=== PATIENT | female | born 1950 | race African-American/Black ===

== ENCOUNTER 2017-04-29 13:22 | Inpatient (IN) ==
[2017-04-29] MEDS ORDERED: ONDANSETRON 4 MG/2 ML VIAL IV STA (14:20)
[2017-04-29] MEDS ORDERED: DEXTROSE 50% 25 GM/50 ML VIAL IV STA ×2 (14:20→15:16)
[2017-04-29] MEDS ORDERED: DEXTROSE 50% 25 GM/50 ML VIAL IV ONE (14:22)
[2017-04-29] MEDS ORDERED: LEVOFLOXACIN INJ 750 MG in PREMIX 1 EACH IV STA (14:36)
[2017-04-29] MEDS ORDERED: LEVOFLOXACIN INJ 150 ML IV ONE (14:47)
[2017-04-29] MEDS ORDERED: ONDANSETRON 4 MG/2 ML VIAL ONE (14:50)
[2017-04-29 14:59] LABS: Basophils % 0.2 % (0.0-0.8); Eosinophils % 0.3 % (0.00-10.9); Hematocrit 36.7 VOL% (35.7-47.0); Immature Granulocytes % 0.9 %; Immature Granulocytes Absolute 0.11 #; Lymphocytes # 2.4 10*3/uL (1.4-4.0); Lymphocytes % 20.5 % (21.3-54.2); Mean Corpuscular Hemoglobin 31 PG (27-34); Mean Corpuscular Volume 102.2 FL (87-102); Mean Platelet Volume 10.8 FL (9.6-12.0); Monocytes # 0.2 10*3/uL (0.11-0.8); Monocytes % 1.4 % (1.7-12.7); Neutrophils # 9.1 10*3/uL (1.4-7.4); Neutrophils % 76.7 % (38.7-73.9); Platelet Count 86 T/CUMM (130-400); Red Blood Count 3.59 MC/CUMM (3.8-5.5); Red Cell Distribution Width 15.2 % (9.3-17.3); White Blood Count 11.8 T/CUMM (4-12)
[2017-04-29] MEDS ORDERED: SODIUM CHLORIDE 0.9% 1,000 ML IV STA ×3 (15:16→17:36)
[2017-04-29 15:27] LABS: Alanine Aminotransferase 26 U/L (13-56); Albumin 2.1 G/DL (3.4-5.0); Alkaline Phosphatase 39 U/L (45-117); Amylase 68 U/L (25-115); Aspartate Amino Transferase 27 U/L (0-37); Blood Urea Nitrogen 58 MG/DL (7-18); Osmolality,Calculated 309.2 MOS/KG (273-304); Potassium 5.1 MMOL/L (3.5-5.1); Sodium 134 MMOL/L (136-145); Total Protein 6.5 G/DL (6.4-8.3)
[2017-04-29] MEDS ORDERED: DEXTROSE 5% IV SCH ×2 (15:30)
[2017-04-29] MEDS ORDERED: NACL 0.9% IV SCH ×2 (15:30)
[2017-04-29 15:36] LABS: Glucose 574 MG/DL (74-106); Lactic Acid 10.9 MMOL/L (0.4-2.0); Troponin I Only 0.142 NG/ML (0.00-0.045)
[2017-04-29 16:44] LABS: Apearance,Urine Slightly Hazy (Clear); Bacteria,Urine Occasional /HPF (Few); Bilirubin,Urine Negative (Negative); Blood, Urine Negative (Negative); Glucose,Urine (UA) >=500 mg/dL (Negative); Ketones,Urine 20 mg/dL (Negative); Mucus,Urine Occasional /LPF (Occasional); Nitrite,Urine Negative (Negative); Protein,Urine 100 MG/DL; RBC,Urine 2 /HPF (0-4); Squamous Epithelial Cell,Urine Occasional /HPF (0-10); Urine Color Straw (Yellow); Urine Specific Gravity 1.007 (1.001-1.035); Urine Urobilinogen < 2.0 EU/DL (0.2-1.0); WBC,Urine 4 /HPF (0-6)
[2017-04-29 16:49] LABS: ABG Base Excess -22.8 MMOL/L (-2.5-2.5); ABG HCO3 8.3 MMOL/L (20-26); ABG Oxygen Saturation 94.5 % (95-100); ABG TCO2 5.8 MMOL/L (23-27)
[2017-04-29 16:51] LABS: ABG PCO2 20.3 MM HG (35-48)
[2017-04-29] MEDS ORDERED: SODIUM PHOSPHATE INJ 18.7 MMOL in SODIUM CHLORIDE 0.9% 250 ML IV PRN (17:09)
[2017-04-29] MEDS ORDERED: SODIUM CHLORIDE 0.9% 1,000 ML IV ONE (17:09)
[2017-04-29] MEDS ORDERED: MAGNESIUM SULF RIDER 2 GM in PREMIX 1 EACH IV PRN (17:09)
[2017-04-29] MEDS ORDERED: MAGNESIUM SULF RIDER 4 GM in PREMIX 1 EACH IV PRN (17:09)
[2017-04-29] MEDS ORDERED: SODIUM BICARB INJ 100 MEQ in STERILE WATER INJ 400 ML IV PRN (17:09)
[2017-04-29] MEDS ORDERED: POTASSIUM CHLORIDE RIDER 10 MEQ in PREMIX 1 EACH IV PRN (17:09)
[2017-04-29] MEDS ORDERED: DEXTROSE 50% 25 GM/50 ML VIAL IV PRN ×2 (17:09)
[2017-04-29] MEDS ORDERED: INSULIN REGULAR 100 UNIT/ML IV ONE (17:09)
[2017-04-29 17:23] LABS: Barbiturates Screen,Urine Negative (Negative); Benzodiazepines Screen,Urine Negative (Negative); Cannabinoid Screen,Urine Negative (Negative); Opiate Screen,Urine Positive (Negative); Phencyclidine Screen,Urine Negative (Negative)
[2017-04-29 17:30] LABS: Magnesium 2.2 MG/DL (1.8-2.4)
[2017-04-29] MEDS ORDERED: INSULIN REGULAR DRIP 100 ML IV SCH (17:30)
[2017-04-29] MEDS ORDERED: HYDROCORTISONE 100 MG VIAL IV STA (17:41)
[2017-04-29] MEDS: SODIUM CHLORIDE 0.9% 1,000 ML IV SCH ×2 (17:50→20:17)
[2017-04-29 18:37] LABS: ABG Base Excess -22.9 MMOL/L (-2.5-2.5); ABG HCO3 5.2 MMOL/L (20-26); ABG Oxygen Saturation 95.3 % (95-100); ABG PO2 99.9 MM HG (80-95); ABG TCO2 5.7 MMOL/L (23-27)
[2017-04-29 18:39] LABS: ABG PH 7.085 (7.35-7.45)
[2017-04-29 18:40] LABS: ABG PCO2 17.6 MM HG (35-48)
[2017-04-29 20:07] LABS: Basophils % 0.2 % (0.0-0.8); Eosinophils % 0.2 % (0.00-10.9); Hemoglobin 12.3 GM/DL (12.0-16.0); Immature Granulocytes % 1.3 %; Immature Granulocytes Absolute 0.16 #; Lymphocytes # 2.2 10*3/uL (1.4-4.0); Lymphocytes % 17.4 % (21.3-54.2); Mean Corpuscular HGB Conc 29.9 GM/DL (32-36); Mean Corpuscular Hemoglobin 31 PG (27-34); Mean Corpuscular Volume 102.2 FL (87-102); Mean Platelet Volume 11.6 FL (9.6-12.0); Monocytes # 0.2 10*3/uL (0.11-0.8); Monocytes % 1.4 % (1.7-12.7); Neutrophils # 10.1 10*3/uL (1.4-7.4); Neutrophils % 79.5 % (38.7-73.9); Platelet Count 101 T/CUMM (130-400); Red Blood Count 4.02 MC/CUMM (3.8-5.5); White Blood Count 12.7 T/CUMM (4-12)
[2017-04-29 20:11] LABS: Hematocrit 41.1 VOL% (35.7-47.0)
[2017-04-29] MEDS: DEXTROSE 5% LACTATED RINGERS 1,000 ML IV SCH (20:18)
[2017-04-29] MEDS ORDERED: SODIUM CHLORIDE 0.9% 1,000 ML IV SCH (20:30)
[2017-04-29 20:36] LABS: Eosinophils 1 % (0-10); Lymphocytes 10 % (20-55); Platelet Estimate Decreased; Segmented Neutrophils 89 % (50-85); Total Cells Counted 100
[2017-04-29 20:42] LABS: Lactic Acid 12.3 MMOL/L (0.4-2.0)
[2017-04-29 20:44] LABS: Calcium 8.1 MG/DL (8.5-10.1); Osmolality,Calculated 303.1 MOS/KG (273-304); Potassium 5.2 MMOL/L (3.5-5.1)
[2017-04-29] MEDS: ENOXAPARIN 30 MG/0.3 ML SYRINGE SUBCUT SCH (21:16)
[2017-04-30 00:39] LABS: Calcium 8.2 MG/DL (8.5-10.1); Osmolality,Calculated 304.8 MOS/KG (273-304); Potassium 4.8 MMOL/L (3.5-5.1)
[2017-04-30] MEDS: DEXT 5% LACT RING KCL 20 MEQ 20 MEQ/1,000 ML BAG IV SCH ×2 (01:50→09:18)
[2017-04-30 04:19] LABS: Allen Test Positive; Pt O2 Delivery Device Room Air
[2017-04-30 04:26] LABS: ABG Base Excess -13.7 MMOL/L (-2.5-2.5); ABG HCO3 13.9 MMOL/L (20-26); ABG Oxygen Saturation 96.4 % (95-100); ABG PCO2 26.4 MM HG (35-48); ABG PH 7.268 (7.35-7.45); ABG PO2 86.3 MM HG (80-95)
[2017-04-30 05:18] LABS: Basophils % 0.1 % (0.0-0.8); Eosinophils % 0.1 % (0.00-10.9); Hematocrit 36.1 VOL% (35.7-47.0); Hemoglobin 11.2 GM/DL (12.0-16.0); Immature Granulocytes % 1.6 %; Immature Granulocytes Absolute 0.22 #; Lymphocytes # 2.6 10*3/uL (1.4-4.0); Lymphocytes % 18.7 % (21.3-54.2); Mean Corpuscular Hemoglobin 30 PG (27-34); Mean Corpuscular Volume 97.8 FL (87-102); Monocytes # 0.6 10*3/uL (0.11-0.8); Monocytes % 3.9 % (1.7-12.7); Neutrophils # 10.7 10*3/uL (1.4-7.4); Neutrophils % 75.6 % (38.7-73.9); Platelet Count 102 T/CUMM (130-400); Red Blood Count 3.69 MC/CUMM (3.8-5.5); Red Cell Distribution Width 14.9 % (9.3-17.3); White Blood Count 14.1 T/CUMM (4-12)
[2017-04-30] MEDS: HYDROCORTISONE 100 MG VIAL IV SCH ×3 (05:28→20:37)
[2017-04-30 05:43] LABS: Calcium 7.8 MG/DL (8.5-10.1); Osmolality,Calculated 305.6 MOS/KG (273-304); Potassium 4.4 MMOL/L (3.5-5.1)
[2017-04-30 06:18] LABS: Magnesium 2.1 MG/DL (1.8-2.4)
[2017-04-30] MEDS: DEXTROSE 5% LACTATED RINGERS 1,000 ML IV SCH (07:17)
[2017-04-30] MEDS ORDERED: SODIUM CHLORIDE 0.45% 1,000 ML IV SCH (10:09)
[2017-04-30] MEDS: SODIUM BICARB INJ 100 MEQ in DEXTROSE 5% 1,000 ML IV SCH ×2 (10:32→16:40)
[2017-04-30] MEDS ORDERED: GLUCAGON 1 MG VIAL IM PRN (11:54)
[2017-04-30 12:12] LABS: Immunoglobulin A 49 MG/DL (70-400); Immunoglobulin G 2060 MG/DL (700-1600); Immunoglobulin M < 21 MG/DL (40-230); Total Protein 6.8 G/DL (6.4-8.3)
[2017-04-30] MEDS: NIFEdipine 10 MG CAPSULE PO PRN (13:28)
[2017-04-30] MEDS ORDERED: INSULIN REGULAR 100 UNIT/ML SUBCUT SCH (14:00)
[2017-04-30] MEDS: INSULIN REGULAR 100 UNIT/ML SUBCUT SCH ×2 (15:37→20:36)
[2017-04-30] MEDS: ENOXAPARIN 30 MG/0.3 ML SYRINGE SUBCUT SCH (20:36)
[2017-05-01] MEDS: INSULIN REGULAR 100 UNIT/ML SUBCUT SCH ×6 (00:28→20:43)
[2017-05-01 01:21] LABS: Hematocrit 33.3 VOL% (35.7-47.0); Hemoglobin 11.3 GM/DL (12.0-16.0); Immature Granulocytes % 0.9 %; Immature Granulocytes Absolute 0.08 #; Lymphocytes # 0.8 10*3/uL (1.4-4.0); Mean Corpuscular HGB Conc 33.9 GM/DL (32-36); Mean Corpuscular Hemoglobin 31 PG (27-34); Mean Platelet Volume 11.1 FL (9.6-12.0); Monocytes # 0.5 10*3/uL (0.11-0.8); Monocytes % 6.2 % (1.7-12.7); NRBC # 0.02 10*3/uL; Neutrophils # 7.3 10*3/uL (1.4-7.4); Neutrophils % 83.9 % (38.7-73.9); Red Blood Count 3.66 MC/CUMM (3.8-5.5); Red Cell Distribution Width 14.9 % (9.3-17.3); White Blood Count 8.8 T/CUMM (4-12)
[2017-05-01 01:27] LABS: Platelet Count 73 T/CUMM (130-400)
[2017-05-01] MEDS: SODIUM BICARB INJ 100 MEQ in DEXTROSE 5% 1,000 ML IV SCH ×5 (01:37→19:07)
[2017-05-01 01:50] LABS: Lactic Acid 4.1 MMOL/L (0.4-2.0)
[2017-05-01 01:53] LABS: Alanine Aminotransferase 30 U/L (13-56); Albumin 2.5 G/DL (3.4-5.0); Alkaline Phosphatase 39 U/L (45-117); Aspartate Amino Transferase 31 U/L (0-37); Bilirubin,Total < 0.39 MG/DL (0.2-1.0); Blood Urea Nitrogen 52 MG/DL (7-18); Glucose 149 MG/DL (74-106); Magnesium 1.9 MG/DL (1.8-2.4); Osmolality,Calculated 295.4 MOS/KG (273-304); Potassium 3.5 MMOL/L (3.5-5.1); Sodium 140 MMOL/L (136-145); Total Protein 6.8 G/DL (6.4-8.3)
[2017-05-01] MEDS ORDERED: CALCIUM GLUCONATE 2,000 MG in SODIUM CHLORIDE 0.9% 100 ML IV ONE (02:36)
[2017-05-01 03:47] LABS: Ovalocytes 1+
[2017-05-01 03:48] LABS: Platelet Estimate Decreased; Tear Drop Cells Few
[2017-05-01] MEDS ORDERED: POTASSIUM CHLORIDE INJ 20 MEQ in SODIUM CHLORIDE 0.9% 250 ML IV ONE (04:00)
[2017-05-01] MEDS: HYDROCORTISONE 100 MG VIAL IV SCH ×2 (04:12→12:03)
[2017-05-01] MEDS: NIFEdipine 10 MG CAPSULE PO PRN (05:42)
[2017-05-01 05:47] LABS: Lactic Acid 4.4 MMOL/L (0.4-2.0)
[2017-05-01 06:05] LABS: VBG Base Excess -4.5 MEQ/L (0-4); VBG Oxygen Saturation 98.7 %; VBG PCO2 26.2 MMHG (41-51); VBG PH 7.455; VBG PO2 223.3 MMHG (17-40)
[2017-05-01] MEDS ORDERED: ROSUVASTATIN 20 MG TABLET PO SCH (12:00)
[2017-05-01] MEDS: DILTIAZEM CD 120 MG CAPSULE PO SCH (12:04)
[2017-05-01] MEDS: LEVOFLOXACIN INJ 250 MG in PREMIX 1 EACH IV SCH (15:53)
[2017-05-01] MEDS: CARVEDILOL 25 MG TABLET PO SCH (16:39)
[2017-05-01] MEDS: ENOXAPARIN 30 MG/0.3 ML SYRINGE SUBCUT SCH (20:44)
[2017-05-02] MEDS: SODIUM BICARB INJ 100 MEQ in DEXTROSE 5% 1,000 ML IV SCH ×2 (03:00→09:24)
[2017-05-02] MEDS: INSULIN REGULAR 100 UNIT/ML SUBCUT SCH ×6 (03:02→21:41)
[2017-05-02 03:17] LABS: Basophils % 0.2 % (0.0-0.8); Hematocrit 33.9 VOL% (35.7-47.0); Hemoglobin 11.6 GM/DL (12.0-16.0); Immature Granulocytes % 1.2 %; Immature Granulocytes Absolute 0.08 #; Lymphocytes # 1.3 10*3/uL (1.4-4.0); Lymphocytes % 19.5 % (21.3-54.2); Mean Corpuscular HGB Conc 34.2 GM/DL (32-36); Mean Corpuscular Hemoglobin 31 PG (27-34); Mean Corpuscular Volume 89.4 FL (87-102); Mean Platelet Volume 12.4 FL (9.6-12.0); Monocytes % 14.7 % (1.7-12.7); Neutrophils # 4.3 10*3/uL (1.4-7.4); Neutrophils % 64.4 % (38.7-73.9); Platelet Count 71 T/CUMM (130-400); Red Blood Count 3.79 MC/CUMM (3.8-5.5); Red Cell Distribution Width 14.7 % (9.3-17.3); White Blood Count 6.7 T/CUMM (4-12)
[2017-05-02 03:30] LABS: Lactic Acid 3.2 MMOL/L (0.4-2.0)
[2017-05-02 04:24] LABS: Anisocytosis 1+; Poikilocytosis 1+
[2017-05-02 04:43] LABS: Blood Urea Nitrogen 43 MG/DL (7-18); Calcium 6.8 MG/DL (8.5-10.1); Glucose 113 MG/DL (74-106); Magnesium 1.8 MG/DL (1.8-2.4); Osmolality,Calculated 290.4 MOS/KG (273-304); Potassium 2.8 MMOL/L (3.5-5.1); Sodium 140 MMOL/L (136-145)
[2017-05-02 04:47] LABS: Troponin I Only 0.705 NG/ML (0.00-0.045)
[2017-05-02] MEDS ORDERED: POTASSIUM CHLORIDE INJ 50 MEQ in SODIUM CHLORIDE 0.9% 500 ML IV ONE (06:00)
[2017-05-02 07:53] LABS: Lactic Acid 3.3 MMOL/L (0.4-2.0)
[2017-05-02] MEDS: DILTIAZEM CD 120 MG CAPSULE PO SCH (09:18)
[2017-05-02] MEDS: CARVEDILOL 25 MG TABLET PO SCH ×2 (09:19→16:50)
[2017-05-02] MEDS: POTASSIUM CHLORIDE 20 MEQ TABLET PO SCH ×4 (09:19→21:19)
[2017-05-02] MEDS: ASPIRIN EC 81 MG TABLET PO SCH (09:19)
[2017-05-02] MEDS: DOCUSATE SODIUM 100 MG CAPSULE PO SCH ×2 (09:40→21:19)
[2017-05-02] MEDS: SODIUM BICARB INJ 50 MEQ in DEXTROSE 5% 1,000 ML IV SCH (16:23)
[2017-05-02] MEDS: ENOXAPARIN 30 MG/0.3 ML SYRINGE SUBCUT SCH (21:19)
[2017-05-03] MEDS: INSULIN REGULAR 100 UNIT/ML SUBCUT SCH ×6 (01:26→20:58)
[2017-05-03] MEDS: SODIUM BICARB INJ 50 MEQ in DEXTROSE 5% 1,000 ML IV SCH ×2 (01:26→13:04)
[2017-05-03 05:37] LABS: Magnesium 1.5 MG/DL (1.8-2.4); Osmolality,Calculated 288.4 MOS/KG (273-304); Potassium 3.8 MMOL/L (3.5-5.1)
[2017-05-03 05:49] LABS: Calcium 5.6 MG/DL (8.5-10.1)
[2017-05-03 08:15] LABS: Immunoglobulin A (Chem) 49 MG/DL (70-400); Immunoglobulin G (Chem) 2060 MG/DL (700-1600); Total Protein (Chem) 6.8 G/DL (6.4-8.3)
[2017-05-03 08:16] LABS: Immunoglobulin M (Chem) < 21 MG/DL (40-230)
[2017-05-03] MEDS: CALCIUM (CARBONATE)/VITAMIN D 600 MG-400 UNIT TABLET PO SCH ×2 (09:17→20:57)
[2017-05-03] MEDS: CARVEDILOL 25 MG TABLET PO SCH ×2 (09:17→16:54)
[2017-05-03] MEDS: DOCUSATE SODIUM 100 MG CAPSULE PO SCH ×2 (09:17→20:57)
[2017-05-03] MEDS: DILTIAZEM CD 120 MG CAPSULE PO SCH (09:17)
[2017-05-03] MEDS: ASPIRIN EC 81 MG TABLET PO SCH (09:18)
[2017-05-03 09:29] LABS: 25 Hydroxy Vitamin D Total 11.2 NG/ML
[2017-05-03 10:12] LABS: Parathyroid Hormone Intact 1726.7 PG/ML (18.4-80.1)
[2017-05-03 13:16] LABS: Albumin (SPE) 3.2 G/DL (3.2-5.3); Albumin (SPE) Rel % 48.1 %; Alpha 1 (SPE) 0.2 G/DL (0.1-0.4); Alpha 1 (SPE) Rel % 3.1 %; Alpha 2 (SPE) 0.7 G/DL (0.4-1.0); Alpha 2 (SPE) Rel % 10.3 %; Beta (SPE) 0.7 G/DL (0.5-1.1); Beta (SPE) Rel % 9.6 %; Gamma (SPE) Rel % 28.9 %
[2017-05-03] MEDS ORDERED: TUBERCULIN SKIN TEST 0.1 ML SYRINGE INTRADERM ONE (13:19)
[2017-05-03] MEDS: LEVOFLOXACIN INJ 250 MG in PREMIX 1 EACH IV SCH (16:37)
[2017-05-03] MEDS: SODIUM BICARBONATE 650 MG TABLET PO SCH (20:58)
[2017-05-04] MEDS: INSULIN REGULAR 100 UNIT/ML SUBCUT SCH ×4 (02:03→11:56)
[2017-05-04 08:19] LABS: Immuno Free Light Chain Kappa 67.54 MG/DL (0.33-1.94); Immuno Free Light Chain Lambda 0.66 MG/DL (0.57-2.63); Immuno Free Light Chain Ratio 102.33 MG/DL (0.26-1.65)
[2017-05-04] MEDS: CALCIUM (CARBONATE)/VITAMIN D 600 MG-400 UNIT TABLET PO SCH (09:24)
[2017-05-04] MEDS: DILTIAZEM CD 120 MG CAPSULE PO SCH (09:24)
[2017-05-04] MEDS: DOCUSATE SODIUM 100 MG CAPSULE PO SCH (09:24)
[2017-05-04] MEDS: ASPIRIN EC 81 MG TABLET PO SCH (09:24)
[2017-05-04] MEDS: SODIUM BICARBONATE 650 MG TABLET PO SCH (09:24)
[2017-05-04] MEDS: CARVEDILOL 25 MG TABLET PO SCH (09:24)
[2017-05-04 09:58] LABS: Calcium 6.5 MG/DL (8.5-10.1); Osmolality,Calculated 291.1 MOS/KG (273-304); Potassium 3.5 MMOL/L (3.5-5.1)
[2017-05-04] MEDS ORDERED: ERGOCALCIFEROL 50,000 UNIT CAPSULE PO SCH (12:00)
[2017-05-04 12:16] VITALS: BP 94/67
== END 2017-05-04 14:07 | disposition home or self-care (01) | DRG 637 ==
LOC: EDUNIT# → EDBD → N.ED 13:22 → SUATTDRO 17:11 → N.EDINP 17:11 → N.ICU 17:46 → N.TELES 05-01 13:39
PROVIDERS: ADMIT Internal Medicine; ATTEND Internal Medicine

== ENCOUNTER 2017-05-11 11:58 | Inpatient (IN) ==
[2017-05-11] MEDS ORDERED: SODIUM CHLORIDE 0.9% 1,000 ML IV STA (12:12)
[2017-05-11] MEDS ORDERED: methylPREDNISolone SOD SUC 125 MG/2 ML VIAL IV STA (12:12)
[2017-05-11] MEDS ORDERED: LEVOFLOXACIN INJ 750 MG in PREMIX 1 EACH IV SCH (12:30)
[2017-05-11] MEDS ORDERED: ALBUTEROL NEB SOLN 5 MG/ML 20 ML/BOTTLE RESP TX SCH (12:30)
[2017-05-11] MEDS ORDERED: methylPREDNISolone SOD SUC 125 MG/2 ML VIAL ONE (13:04)
[2017-05-11] MEDS ORDERED: LEVOFLOXACIN INJ 150 ML IV ONE (13:04)
[2017-05-11 13:20] LABS: Basophils % 0.2 % (0.0-0.8); Eosinophils % 0.5 % (0.00-10.9); Hematocrit 29.2 VOL% (35.7-47.0); Hemoglobin 9.2 GM/DL (12.0-16.0); Immature Granulocytes % 1.4 %; Immature Granulocytes Absolute 0.08 #; Lymphocytes # 1.5 10*3/uL (1.4-4.0); Lymphocytes % 26.2 % (21.3-54.2); Mean Corpuscular HGB Conc 31.5 GM/DL (32-36); Mean Corpuscular Hemoglobin 30 PG (27-34); Mean Corpuscular Volume 93.9 FL (87-102); Mean Platelet Volume 12.6 FL (9.6-12.0); Monocytes # 0.5 10*3/uL (0.11-0.8); Monocytes % 9.1 % (1.7-12.7); Neutrophils # 3.6 10*3/uL (1.4-7.4); Neutrophils % 62.6 % (38.7-73.9); Red Blood Count 3.11 MC/CUMM (3.8-5.5); Red Cell Distribution Width 14.7 % (9.3-17.3); White Blood Count 5.8 T/CUMM (4-12)
[2017-05-11 13:22] LABS: Platelet Count 47 T/CUMM (130-400)
[2017-05-11 13:24] LABS: Apearance,Urine Clear (Clear); Glucose,Urine (UA) 50 mg/dL (Negative); Protein,Urine 100 MG/DL; Urine Color Yellow (Yellow); Urine Specific Gravity 1.005 (1.001-1.035)
[2017-05-11 13:25] LABS: Bilirubin,Urine Negative (Negative); Blood, Urine Trace mg/dL (Negative); Ketones,Urine Negative (Negative); Nitrite,Urine Negative (Negative); Urine Urobilinogen 0.2 EU/DL (0.2-1.0)
[2017-05-11 13:28] LABS: RBC,Urine 0-5 /HPF (0-4); Squamous Epithelial Cell,Urine Few /HPF (0-10)
[2017-05-11 13:29] LABS: Mucus,Urine Few /LPF (Occasional)
[2017-05-11 13:31] LABS: INR 0.9; PT Patient Result 9.9 SECS; Partial Thromboplastin Time 30.9 SECS (0-40)
[2017-05-11 13:39] LABS: Barbiturates Screen,Urine Negative (Negative); Benzodiazepines Screen,Urine Negative (Negative); Cannabinoid Screen,Urine Negative (Negative); Opiate Screen,Urine Positive (Negative); Phencyclidine Screen,Urine Negative (Negative)
[2017-05-11 13:39] LABS: Albumin 2.2 G/DL (3.4-5.0); Bilirubin,Total 0.9 MG/DL (0.2-1.0); Calcium 6.4 MG/DL (8.5-10.1); Osmolality,Calculated 291.7 MOS/KG (273-304); Potassium 5.1 MMOL/L (3.5-5.1); Total Protein 6.7 G/DL (6.4-8.3)
[2017-05-11 13:40] LABS: Troponin I Only 0.373 NG/ML (0.00-0.045)
[2017-05-11 13:53] LABS: ABG Base Excess -8.8 MMOL/L (-2.5-2.5); ABG HCO3 17.3 MMOL/L (20-26); ABG Oxygen Saturation 93.8 % (95-100); ABG PCO2 37.6 MM HG (35-48); ABG PH 7.274 (7.35-7.45); ABG PO2 80.5 MM HG (80-95); ABG TCO2 16.4 MMOL/L (23-27); Allen Test Positive
[2017-05-11] MEDS ORDERED: ALBUTEROL 2.5 MG/3 ML NEB RESP TX PRN (14:43)
[2017-05-11] MEDS ORDERED: ONDANSETRON 4 MG/2 ML VIAL IV PRN (14:43)
[2017-05-11] MEDS ORDERED: PIPERACILLIN/TAZOBACTAM 3,375 MG in SODIUM CHLORIDE 0.9% 100 ML IV SCH (15:00)
[2017-05-11] MEDS ORDERED: methylPREDNISolone SOD SUC 40 MG/1 ML VIAL IV SCH (15:00)
[2017-05-11] MEDS ORDERED: DEXTROSE 50% 25 GM/50 ML VIAL IV PRN (15:28)
[2017-05-11] MEDS ORDERED: GLUCAGON 1 MG VIAL IM PRN (15:28)
[2017-05-11] MEDS ORDERED: FUROSEMIDE 40 MG/4 ML VIAL IV SCH (16:00)
[2017-05-11] MEDS ORDERED: cefTRIAXone 1,000 MG VIAL ONE (16:06)
[2017-05-11] MEDS: cefTRIAXone 1,000 MG in SYRINGE 1 EACH IV SCH (16:15)
[2017-05-11] MEDS: INSULIN REGULAR 100 UNIT/ML SUBCUT SCH (18:39)
[2017-05-11] MEDS ORDERED: FUROSEMIDE 40 MG/4 ML VIAL ONE (18:40)
[2017-05-11] MEDS: ALBUTEROL/IPRATROPIUM 3 ML NEB RESP TX SCH (19:52)
[2017-05-11] MEDS: CALCIUM (CARBONATE)/VITAMIN D 600 MG-400 UNIT TABLET PO SCH (22:49)
[2017-05-11] MEDS: PREGABALIN 50 MG CAPSULE PO SCH (22:50)
[2017-05-11] MEDS: SODIUM BICARBONATE 650 MG TABLET PO SCH (22:50)
[2017-05-11] MEDS: methylPREDNISolone SOD SUC 40 MG/1 ML VIAL IV SCH (23:00)
[2017-05-11] MEDS: PANTOPRAZOLE 40 MG VIAL IV SCH (23:00)
[2017-05-12] MEDS ORDERED: methylPREDNISolone SOD SUC 40 MG/1 ML VIAL IV SCH (00:01)
[2017-05-12] MEDS: ALBUTEROL/IPRATROPIUM 3 ML NEB RESP TX SCH ×4 (00:48→19:47)
[2017-05-12] MEDS: INSULIN REGULAR 100 UNIT/ML SUBCUT SCH ×5 (01:10→21:12)
[2017-05-12] MEDS: cefTRIAXone 1,000 MG in SYRINGE 1 EACH IV SCH ×2 (03:39→15:00)
[2017-05-12] MEDS: methylPREDNISolone SOD SUC 40 MG/1 ML VIAL IV SCH ×3 (05:57→20:56)
[2017-05-12 06:24] LABS: Basophils % 0.1 % (0.0-0.8); Hematocrit 33.8 VOL% (35.7-47.0); Hemoglobin 10.8 GM/DL (12.0-16.0); Immature Granulocytes % 2.4 %; Immature Granulocytes Absolute 0.18 #; Lymphocytes # 1.6 10*3/uL (1.4-4.0); Mean Corpuscular Hemoglobin 30 PG (27-34); Mean Corpuscular Volume 93.9 FL (87-102); Mean Platelet Volume 13.2 FL (9.6-12.0); Monocytes # 0.2 10*3/uL (0.11-0.8); Neutrophils # 5.7 10*3/uL (1.4-7.4); Neutrophils % 74.5 % (38.7-73.9); Platelet Count 50 T/CUMM (130-400); Red Cell Distribution Width 14.7 % (9.3-17.3); White Blood Count 7.6 T/CUMM (4-12)
[2017-05-12 06:45] LABS: Calcium 6.2 MG/DL (8.5-10.1); Osmolality,Calculated 290.7 MOS/KG (273-304)
[2017-05-12 06:47] LABS: Potassium 6.2 MMOL/L (3.5-5.1)
[2017-05-12 06:52] LABS: Band Neutrophils 7 % (0-10); Lymphocytes 24 % (20-55); Macrocytosis 1+; Platelet Estimate Decreased; Segmented Neutrophils 67 % (50-85); Total Cells Counted 100
[2017-05-12] MEDS ORDERED: SODIUM BICARBONATE 50 MEQ/50 ML SYRINGE IV ONE (06:52)
[2017-05-12] MEDS ORDERED: CALCIUM CHLORIDE 1,000 MG/10 ML SYRINGE IV ONE (06:52)
[2017-05-12] MEDS ORDERED: INSULIN REGULAR 100 UNIT/ML IV ONE (06:52)
[2017-05-12] MEDS ORDERED: SODIUM POLYSTYRENE SULFATE 15 GM/60 ML BOTTLE PO STA (06:52)
[2017-05-12] MEDS ORDERED: DEXTROSE 50% 25 GM/50 ML VIAL IV ONE (06:52)
[2017-05-12] MEDS ORDERED: SODIUM BICARB INJ 100 MEQ in DEXTROSE 5% 1,000 ML IV SCH (08:00)
[2017-05-12] MEDS ORDERED: GLUCAGON 1 MG VIAL IM PRN (09:30)
[2017-05-12] MEDS ORDERED: DEXTROSE 50% 25 GM/50 ML VIAL IV PRN (09:30)
[2017-05-12] MEDS: CALCIUM (CARBONATE)/VITAMIN D 600 MG-400 UNIT TABLET PO SCH ×2 (09:53→20:56)
[2017-05-12] MEDS: ASPIRIN EC 81 MG TABLET PO SCH (09:54)
[2017-05-12] MEDS: ROSUVASTATIN 20 MG TABLET PO SCH (09:54)
[2017-05-12] MEDS: INSULIN GLARGINE 100 UNIT/ML SUBCUT SCH (09:54)
[2017-05-12 10:15] LABS: PT Patient Result 10.4 SECS; Partial Thromboplastin Time 29.8 SECS (0-40)
[2017-05-12] MEDS: SODIUM BICARB INJ 150 MEQ in DEXTROSE 5% 1,000 ML IV SCH ×2 (10:49→20:01)
[2017-05-12] MEDS ORDERED: hydrALAZINE 20 MG/1 ML VIAL IV PRN (10:54)
[2017-05-12 11:51] LABS: Hepatitis A Ab IgM Quant 0.12 Index; Hepatitis A Ab IgM Result Negative (Negative); Hepatitis B Core IgM Quant 0.17 Index; Hepatitis B Core IgM Result Negative (Negative); Hepatitis B Surface Ag Quant < 0.10 Index; Hepatitis B Surface Ag Result Negative (Negative); Hepatitis C Virus Ab Quant 0.05 Index; Hepatitis C Virus Ab Result Negative (Negative)
[2017-05-12] MEDS ORDERED: LEVOFLOXACIN INJ 500 MG in PREMIX 1 EACH IV ONE (12:00)
[2017-05-12] MEDS: hydrALAZINE 25 MG TABLET PO SCH ×2 (15:00→20:56)
[2017-05-12] MEDS: CARVEDILOL 25 MG TABLET PO SCH (17:34)
[2017-05-12 18:30] LABS: Calcium 6.7 MG/DL (8.5-10.1); Osmolality,Calculated 297.5 MOS/KG (273-304); Potassium 4.7 MMOL/L (3.5-5.1)
[2017-05-12] MEDS: DILTIAZEM 60 MG TABLET PO SCH (20:56)
[2017-05-12] MEDS: PANTOPRAZOLE 40 MG VIAL IV SCH (20:58)
[2017-05-13] MEDS: ALBUTEROL/IPRATROPIUM 3 ML NEB RESP TX SCH ×4 (00:55→21:44)
[2017-05-13] MEDS: methylPREDNISolone SOD SUC 40 MG/1 ML VIAL IV SCH ×3 (04:51→21:35)
[2017-05-13] MEDS: SODIUM BICARB INJ 150 MEQ in DEXTROSE 5% 1,000 ML IV SCH ×2 (04:51→15:14)
[2017-05-13] MEDS: cefTRIAXone 1,000 MG in SYRINGE 1 EACH IV SCH ×2 (04:55→14:21)
[2017-05-13 05:21] LABS: Hematocrit 27.8 VOL% (35.7-47.0); Hemoglobin 9.6 GM/DL (12.0-16.0); Immature Granulocytes Absolute 0.12 #; Lymphocytes # 1.2 10*3/uL (1.4-4.0); Lymphocytes % 20.1 % (21.3-54.2); Mean Corpuscular HGB Conc 34.5 GM/DL (32-36); Mean Corpuscular Hemoglobin 30 PG (27-34); Mean Platelet Volume 13.4 FL (9.6-12.0); Monocytes # 0.3 10*3/uL (0.11-0.8); Monocytes % 5.5 % (1.7-12.7); Neutrophils # 4.3 10*3/uL (1.4-7.4); Neutrophils % 72.4 % (38.7-73.9); Platelet Count 63 T/CUMM (130-400); Red Blood Count 3.16 MC/CUMM (3.8-5.5); Red Cell Distribution Width 14.5 % (9.3-17.3)
[2017-05-13 05:42] LABS: Band Neutrophils 2 % (0-10); Hypochromasia 1+; Lymphocytes 15 % (20-55); Metamyelocytes 1 %; Myelocytes 1 %; Nucleated Red Blood Cells 0 (0-5); Segmented Neutrophils 76 % (50-85); Total Cells Counted 100
[2017-05-13 05:43] LABS: Microcytosis Slight; Ovalocytes Slight; Platelet Estimate Decreased; Tear Drop Cells Slight
[2017-05-13 05:50] LABS: Calcium 6.5 MG/DL (8.5-10.1); Osmolality,Calculated 298.3 MOS/KG (273-304); Potassium 4.3 MMOL/L (3.5-5.1)
[2017-05-13] MEDS: PREGABALIN 50 MG CAPSULE PO SCH (07:13)
[2017-05-13] MEDS: SODIUM BICARBONATE 650 MG TABLET PO SCH (07:13)
[2017-05-13] MEDS: INSULIN GLARGINE 100 UNIT/ML SUBCUT SCH (07:30)
[2017-05-13] MEDS ORDERED: FAMOTIDINE 20 MG TABLET PO ONE (07:43)
[2017-05-13] MEDS ORDERED: DIAZEPAM 2 MG TABLET PO ONE (07:44)
[2017-05-13] MEDS ORDERED: ceFAZolin 1,000 MG in SYRINGE 1 EACH IV ONE (09:00)
[2017-05-13] MEDS: DILTIAZEM 60 MG TABLET PO SCH ×2 (09:22→21:34)
[2017-05-13] MEDS: hydrALAZINE 25 MG TABLET PO SCH ×3 (09:22→21:34)
[2017-05-13] MEDS: CARVEDILOL 25 MG TABLET PO SCH ×2 (09:22→17:19)
[2017-05-13] MEDS ORDERED: KETAMINE 500 MG/10 ML VIAL ONE (12:13)
[2017-05-13] MEDS ORDERED: fentaNYL 100 MCG/2 ML VIAL ONE (12:13)
[2017-05-13 13:00] LABS: Immuno Free Light Chain Lambda 3.24 MG/DL (0.57-2.63); Immuno Free Light Chain Ratio 563.58 MG/DL (0.26-1.65)
[2017-05-13] MEDS ORDERED: HEPARIN 10,000 UNIT/10 ML VIAL IV SCH (14:00)
[2017-05-13] MEDS ORDERED: EPOETIN ALFA 2,000 UNIT/1 ML VIAL IV SCH (14:00)
[2017-05-13] MEDS: INSULIN REGULAR 100 UNIT/ML SUBCUT SCH ×4 (14:15→21:45)
[2017-05-13] MEDS: CALCIUM (CARBONATE)/VITAMIN D 600 MG-400 UNIT TABLET PO SCH ×2 (14:17→21:35)
[2017-05-13] MEDS: ASPIRIN EC 81 MG TABLET PO SCH (14:17)
[2017-05-13] MEDS: LEVOFLOXACIN 250 MG TABLET PO SCH (14:17)
[2017-05-13] MEDS: ROSUVASTATIN 20 MG TABLET PO SCH (14:17)
[2017-05-13] MEDS: PANTOPRAZOLE 40 MG VIAL IV SCH (21:41)
[2017-05-14] MEDS: ALBUTEROL/IPRATROPIUM 3 ML NEB RESP TX SCH ×4 (02:51→19:58)
[2017-05-14] MEDS: cefTRIAXone 1,000 MG in SYRINGE 1 EACH IV SCH ×2 (04:01→16:15)
[2017-05-14] MEDS: methylPREDNISolone SOD SUC 40 MG/1 ML VIAL IV SCH ×3 (04:06→21:59)
[2017-05-14 04:48] LABS: Hemoglobin 8.3 GM/DL (12.0-16.0); Immature Granulocytes % 2.8 %; Immature Granulocytes Absolute 0.17 #; Lymphocytes # 0.7 10*3/uL (1.4-4.0); Lymphocytes % 12.3 % (21.3-54.2); Mean Corpuscular HGB Conc 33.2 GM/DL (32-36); Mean Corpuscular Hemoglobin 30 PG (27-34); Mean Corpuscular Volume 91.2 FL (87-102); Monocytes # 0.3 10*3/uL (0.11-0.8); NRBC # 0.03 10*3/uL; Neutrophils # 4.8 10*3/uL (1.4-7.4); Neutrophils % 79.9 % (38.7-73.9); Red Blood Count 2.74 MC/CUMM (3.8-5.5); Red Cell Distribution Width 14.6 % (9.3-17.3)
[2017-05-14 04:57] LABS: Mean Platelet Volume 11.7 FL (9.6-12.0)
[2017-05-14 04:59] LABS: Platelet Count 39 T/CUMM (130-400)
[2017-05-14 05:15] LABS: Giant Platelets Few; Hypochromasia 1+; Ovalocytes Slight; Platelet Estimate Decreased
[2017-05-14 05:16] LABS: Microcytosis Slight
[2017-05-14 05:32] LABS: Calcium 6.2 MG/DL (8.5-10.1); Osmolality,Calculated 297.3 MOS/KG (273-304); Potassium 3.8 MMOL/L (3.5-5.1)
[2017-05-14] MEDS: INSULIN REGULAR 100 UNIT/ML SUBCUT SCH ×4 (09:10→22:05)
[2017-05-14] MEDS ORDERED: BORTEZOMIB SUBCUT ONE (13:00)
[2017-05-14] MEDS ORDERED: SODIUM CHLORIDE 0.9% SUBCUT ONE (13:00)
[2017-05-14] MEDS: CARVEDILOL 25 MG TABLET PO SCH ×2 (14:44→17:46)
[2017-05-14] MEDS: hydrALAZINE 25 MG TABLET PO SCH ×3 (14:46→21:58)
[2017-05-14] MEDS: DILTIAZEM 60 MG TABLET PO SCH ×2 (14:47→22:06)
[2017-05-14] MEDS: ASPIRIN EC 81 MG TABLET PO SCH (14:47)
[2017-05-14] MEDS: CALCIUM (CARBONATE)/VITAMIN D 600 MG-400 UNIT TABLET PO SCH ×2 (14:47→21:58)
[2017-05-14] MEDS: INSULIN GLARGINE 100 UNIT/ML SUBCUT SCH (14:49)
[2017-05-14] MEDS: ROSUVASTATIN 20 MG TABLET PO SCH (14:49)
[2017-05-14] MEDS: ACETAMINOPHEN 325 MG TABLET PO PRN (16:15)
[2017-05-14] MEDS: PANTOPRAZOLE 40 MG VIAL IV SCH (22:07)
[2017-05-15] MEDS: ALBUTEROL/IPRATROPIUM 3 ML NEB RESP TX SCH ×4 (00:36→21:09)
[2017-05-15] MEDS: cefTRIAXone 1,000 MG in SYRINGE 1 EACH IV SCH ×2 (03:14→14:56)
[2017-05-15] MEDS: methylPREDNISolone SOD SUC 40 MG/1 ML VIAL IV SCH (05:08)
[2017-05-15] MEDS ORDERED: VANCOMYCIN INJ 500 MG in SODIUM CHLORIDE 0.9% 100 ML IV PRN (07:46)
[2017-05-15] MEDS ORDERED: VANCOMYCIN INJ 1,500 MG in SODIUM CHLORIDE 0.9% 500 ML IV SCH (08:00)
[2017-05-15] MEDS: INSULIN REGULAR 100 UNIT/ML SUBCUT SCH ×4 (08:32→22:53)
[2017-05-15] MEDS: DILTIAZEM 60 MG TABLET PO SCH ×2 (14:19→22:44)
[2017-05-15] MEDS: ROSUVASTATIN 20 MG TABLET PO SCH (14:20)
[2017-05-15] MEDS: hydrALAZINE 25 MG TABLET PO SCH ×2 (14:21)
[2017-05-15] MEDS: CARVEDILOL 25 MG TABLET PO SCH (14:21)
[2017-05-15] MEDS: ASPIRIN EC 81 MG TABLET PO SCH (14:22)
[2017-05-15] MEDS: INSULIN GLARGINE 100 UNIT/ML SUBCUT SCH (14:22)
[2017-05-15] MEDS: LEVOFLOXACIN 250 MG TABLET PO SCH (14:22)
[2017-05-15] MEDS: CALCIUM (CARBONATE)/VITAMIN D 600 MG-400 UNIT TABLET PO SCH ×2 (14:22→22:43)
[2017-05-15] MEDS: VANCOMYCIN INJ 1,000 MG in SODIUM CHLORIDE 0.9% 250 ML IV ONE ×2 (14:23→15:01)
[2017-05-15] MEDS ORDERED: CARVEDILOL 6.25 MG TABLET PO SCH (17:36)
[2017-05-15 18:44] LABS: Albumin 2.8 G/DL (3.4-5.0); Bilirubin,Total 0.4 MG/DL (0.2-1.0); Calcium 7.2 MG/DL (8.5-10.1); Osmolality,Calculated 279.8 MOS/KG (273-304); Potassium 3.2 MMOL/L (3.5-5.1); Total Protein 7.9 G/DL (6.4-8.3)
[2017-05-15 20:00] LABS: Troponin I Only 0.292 NG/ML (0.00-0.045)
[2017-05-15] MEDS ORDERED: MAGNESIUM SULF RIDER 2 GM in PREMIX 1 EACH IV PRN (20:05)
[2017-05-15] MEDS ORDERED: MAGNESIUM SULF RIDER 4 GM in PREMIX 1 EACH IV PRN (20:05)
[2017-05-15] MEDS: POTASSIUM CHLORIDE 20 MEQ TABLET PO PRN (22:42)
[2017-05-15] MEDS: PANTOPRAZOLE 40 MG VIAL IV SCH (22:46)
[2017-05-16] MEDS: ALBUTEROL/IPRATROPIUM 3 ML NEB RESP TX SCH ×4 (04:05→19:32)
[2017-05-16 04:37] LABS: Basophils % 0.2 % (0.0-0.8); Hematocrit 28.1 VOL% (35.7-47.0); Hemoglobin 9.1 GM/DL (12.0-16.0); Immature Granulocytes % 5.1 %; Immature Granulocytes Absolute 0.42 #; Lymphocytes # 0.9 10*3/uL (1.4-4.0); Lymphocytes % 10.8 % (21.3-54.2); Mean Corpuscular HGB Conc 32.4 GM/DL (32-36); Mean Corpuscular Hemoglobin 30 PG (27-34); Mean Corpuscular Volume 92.1 FL (87-102); Monocytes # 0.6 10*3/uL (0.11-0.8); Neutrophils # 6.4 10*3/uL (1.4-7.4); Neutrophils % 76.9 % (38.7-73.9); Red Blood Count 3.05 MC/CUMM (3.8-5.5); Red Cell Distribution Width 14.3 % (9.3-17.3); White Blood Count 8.3 T/CUMM (4-12)
[2017-05-16 04:40] LABS: Platelet Count 31 T/CUMM (130-400)
[2017-05-16] MEDS: methylPREDNISolone SOD SUC 40 MG/1 ML VIAL IV SCH ×3 (04:49→17:24)
[2017-05-16] MEDS: cefTRIAXone 1,000 MG in SYRINGE 1 EACH IV SCH ×2 (05:01→16:46)
[2017-05-16 05:07] LABS: Calcium 7.6 MG/DL (8.5-10.1); Eosinophils 1 % (0-10); Hypochromasia 1+; Lymphocytes 5 % (20-55); Nucleated Red Blood Cells 6 (0-5); Osmolality,Calculated 288.3 MOS/KG (273-304); Potassium 3.6 MMOL/L (3.5-5.1); Segmented Neutrophils 89 % (50-85); Total Cells Counted 100
[2017-05-16 05:08] LABS: Microcytosis Slight; Ovalocytes Slight; Platelet Estimate Decreased; Tear Drop Cells Slight
[2017-05-16 05:23] LABS: Risk Ratio 1.55; VLDL CHOLESTEROL 20.4 MG/DL
[2017-05-16] MEDS ORDERED: AMIODARONE INJ 150 MG in DEXTROSE 5% 100 ML IV ONE (07:52)
[2017-05-16] MEDS ORDERED: AMIODARONE INJ 450 MG in DEXTROSE 5% 241 ML IV SCH (08:00)
[2017-05-16] MEDS: ASPIRIN EC 81 MG TABLET PO SCH (08:55)
[2017-05-16] MEDS: DILTIAZEM 60 MG TABLET PO SCH ×2 (08:55→21:42)
[2017-05-16] MEDS: CALCIUM (CARBONATE)/VITAMIN D 600 MG-400 UNIT TABLET PO SCH ×2 (08:55→21:45)
[2017-05-16] MEDS: CARVEDILOL 25 MG TABLET PO SCH ×2 (08:57→16:31)
[2017-05-16] MEDS: INSULIN REGULAR 100 UNIT/ML SUBCUT SCH ×4 (08:57→21:45)
[2017-05-16] MEDS: INSULIN GLARGINE 100 UNIT/ML SUBCUT SCH (08:58)
[2017-05-16] MEDS ORDERED: CLOPIDOGREL 75 MG TABLET PO SCH (09:00)
[2017-05-16] MEDS: ROSUVASTATIN 20 MG TABLET PO SCH (09:02)
[2017-05-16] MEDS: POTASSIUM CHLORIDE 20 MEQ TABLET PO PRN ×2 (12:54→14:56)
[2017-05-16] MEDS ORDERED: DEXAMETHASONE 10 MG/1 ML VIAL IV ONE (12:57)
[2017-05-16] MEDS ORDERED: DEXAMETHASONE INJ 20 MG in SODIUM CHLORIDE 0.9% 50 ML IV ONE (14:00)
[2017-05-16] MEDS: AMIODARONE INJ 450 MG in DEXTROSE 5% 241 ML IV SCH ×2 (14:59→18:51)
[2017-05-16] MEDS: PANTOPRAZOLE 40 MG VIAL IV SCH (21:45)
[2017-05-17] MEDS: ALBUTEROL/IPRATROPIUM 3 ML NEB RESP TX SCH ×4 (00:52→19:55)
[2017-05-17] MEDS: cefTRIAXone 1,000 MG in SYRINGE 1 EACH IV SCH ×2 (04:21→16:14)
[2017-05-17 05:01] LABS: Basophils % 0.1 % (0.0-0.8); Hematocrit 28.4 VOL% (35.7-47.0); Hemoglobin 9.1 GM/DL (12.0-16.0); Immature Granulocytes % 3.4 %; Immature Granulocytes Absolute 0.33 #; Lymphocytes # 0.7 10*3/uL (1.4-4.0); Lymphocytes % 7.5 % (21.3-54.2); Mean Corpuscular Hemoglobin 30 PG (27-34); Mean Corpuscular Volume 93.7 FL (87-102); Monocytes # 0.3 10*3/uL (0.11-0.8); Monocytes % 3.4 % (1.7-12.7); NRBC # 0.35 10*3/uL; Neutrophils # 8.3 10*3/uL (1.4-7.4); Neutrophils % 85.6 % (38.7-73.9); Red Blood Count 3.03 MC/CUMM (3.8-5.5); Red Cell Distribution Width 14.5 % (9.3-17.3); White Blood Count 9.7 T/CUMM (4-12)
[2017-05-17 05:16] LABS: Platelet Count 27 T/CUMM (130-400)
[2017-05-17 05:33] LABS: Albumin 2.6 G/DL (3.4-5.0); Bilirubin,Total 0.4 MG/DL (0.2-1.0); Calcium 7.6 MG/DL (8.5-10.1); Osmolality,Calculated 294.3 MOS/KG (273-304); Potassium 4.6 MMOL/L (3.5-5.1); Total Protein 7.5 G/DL (6.4-8.3)
[2017-05-17 05:37] LABS: Elliptocytes Few; Giant Platelets Few; Hypochromasia 1+; Platelet Estimate Decreased
[2017-05-17 05:38] LABS: Microcytosis Slight
[2017-05-17] MEDS: methylPREDNISolone SOD SUC 40 MG/1 ML VIAL IV SCH ×2 (06:33→18:38)
[2017-05-17] MEDS: AMIODARONE INJ 450 MG in DEXTROSE 5% 241 ML IV SCH (06:36)
[2017-05-17] MEDS: ASPIRIN EC 81 MG TABLET PO SCH (09:15)
[2017-05-17] MEDS: LEVOFLOXACIN 250 MG TABLET PO SCH (09:15)
[2017-05-17] MEDS: CARVEDILOL 25 MG TABLET PO SCH ×2 (09:15→16:42)
[2017-05-17] MEDS: INSULIN GLARGINE 100 UNIT/ML SUBCUT SCH (09:15)
[2017-05-17] MEDS: DILTIAZEM 60 MG TABLET PO SCH ×2 (09:15→21:08)
[2017-05-17] MEDS: CALCIUM (CARBONATE)/VITAMIN D 600 MG-400 UNIT TABLET PO SCH ×2 (09:15→21:08)
[2017-05-17] MEDS: ROSUVASTATIN 20 MG TABLET PO SCH (09:15)
[2017-05-17] MEDS: INSULIN REGULAR 100 UNIT/ML SUBCUT SCH ×4 (09:16→20:26)
[2017-05-17] MEDS: AMIODARONE 200 MG TABLET PO SCH ×2 (12:00→21:08)
[2017-05-17] MEDS ORDERED: VANCOMYCIN INJ 500 MG in SODIUM CHLORIDE 0.9% 100 ML IV ONE (18:00)
[2017-05-17] MEDS: PANTOPRAZOLE 40 MG VIAL IV SCH (21:09)
[2017-05-18] MEDS: CARVEDILOL 25 MG TABLET PO SCH ×3 (00:31→18:00)
[2017-05-18] MEDS: ALBUTEROL/IPRATROPIUM 3 ML NEB RESP TX SCH ×4 (01:21→19:48)
[2017-05-18] MEDS: cefTRIAXone 1,000 MG in SYRINGE 1 EACH IV SCH ×3 (03:29→14:40)
[2017-05-18 05:42] LABS: Basophils % 0.1 % (0.0-0.8); Hematocrit 27.5 VOL% (35.7-47.0); Hemoglobin 9.2 GM/DL (12.0-16.0); Immature Granulocytes % 2.3 %; Immature Granulocytes Absolute 0.24 #; Lymphocytes # 0.5 10*3/uL (1.4-4.0); Mean Corpuscular HGB Conc 33.5 GM/DL (32-36); Mean Corpuscular Hemoglobin 31 PG (27-34); Mean Corpuscular Volume 92.3 FL (87-102); Monocytes # 0.4 10*3/uL (0.11-0.8); Monocytes % 3.7 % (1.7-12.7); NRBC # 0.36 10*3/uL; Neutrophils # 9.2 10*3/uL (1.4-7.4); Neutrophils % 88.9 % (38.7-73.9); Red Blood Count 2.98 MC/CUMM (3.8-5.5); Red Cell Distribution Width 14.7 % (9.3-17.3); White Blood Count 10.3 T/CUMM (4-12)
[2017-05-18 05:52] LABS: Platelet Count 21 T/CUMM (130-400)
[2017-05-18] MEDS: methylPREDNISolone SOD SUC 40 MG/1 ML VIAL IV SCH ×2 (05:54→18:00)
[2017-05-18 06:09] LABS: Albumin 2.7 G/DL (3.4-5.0); Bilirubin,Total 0.7 MG/DL (0.2-1.0); Calcium 7.5 MG/DL (8.5-10.1); Osmolality,Calculated 306.1 MOS/KG (273-304); Potassium 4.5 MMOL/L (3.5-5.1); Total Protein 7.7 G/DL (6.4-8.3)
[2017-05-18 06:23] LABS: Giant Platelets Few; Hypochromasia 1+; Ovalocytes Slight; Platelet Estimate Decreased
[2017-05-18 06:24] LABS: Microcytosis Slight
[2017-05-18] MEDS: INSULIN REGULAR 100 UNIT/ML SUBCUT SCH ×4 (07:30→21:34)
[2017-05-18] MEDS ORDERED: EPOETIN ALFA 2,000 UNIT/1 ML VIAL IV SCH (08:10)
[2017-05-18] MEDS: ASPIRIN EC 81 MG TABLET PO SCH (09:04)
[2017-05-18] MEDS: CALCIUM (CARBONATE)/VITAMIN D 600 MG-400 UNIT TABLET PO SCH ×2 (09:04→20:30)
[2017-05-18] MEDS: AMIODARONE 200 MG TABLET PO SCH ×2 (09:04→20:30)
[2017-05-18] MEDS: INSULIN GLARGINE 100 UNIT/ML SUBCUT SCH (09:04)
[2017-05-18] MEDS: DILTIAZEM 60 MG TABLET PO SCH ×2 (09:04→20:30)
[2017-05-18] MEDS ORDERED: VANCOMYCIN INJ 500 MG in SODIUM CHLORIDE 0.9% 100 ML IV ONE (15:00)
[2017-05-18] MEDS: PANTOPRAZOLE 40 MG VIAL IV SCH (20:30)
[2017-05-19] MEDS: ALBUTEROL/IPRATROPIUM 3 ML NEB RESP TX SCH ×4 (00:20→19:51)
[2017-05-19] MEDS: methylPREDNISolone SOD SUC 40 MG/1 ML VIAL IV SCH ×2 (05:02→17:50)
[2017-05-19 05:44] LABS: Basophils % 0.1 % (0.0-0.8); Hematocrit 28.2 VOL% (35.7-47.0); Hemoglobin 9.2 GM/DL (12.0-16.0); Immature Granulocytes % 2.7 %; Immature Granulocytes Absolute 0.25 #; Lymphocytes # 0.7 10*3/uL (1.4-4.0); Lymphocytes % 7.3 % (21.3-54.2); Mean Corpuscular HGB Conc 32.6 GM/DL (32-36); Mean Corpuscular Hemoglobin 30 PG (27-34); Mean Corpuscular Volume 92.8 FL (87-102); Monocytes # 0.4 10*3/uL (0.11-0.8); Monocytes % 3.9 % (1.7-12.7); Red Blood Count 3.04 MC/CUMM (3.8-5.5); Red Cell Distribution Width 14.5 % (9.3-17.3); White Blood Count 9.3 T/CUMM (4-12)
[2017-05-19 05:49] LABS: Platelet Count 18 T/CUMM (130-400)
[2017-05-19 06:10] LABS: Hypochromasia 1+
[2017-05-19 06:11] LABS: Microcytosis Slight; Ovalocytes Slight; Platelet Estimate Decreased; Tear Drop Cells Slight
[2017-05-19 06:13] LABS: Albumin 2.8 G/DL (3.4-5.0); Bilirubin,Total 0.9 MG/DL (0.2-1.0); Calcium 7.5 MG/DL (8.5-10.1); Osmolality,Calculated 286.5 MOS/KG (273-304); Potassium 4.2 MMOL/L (3.5-5.1); Total Protein 7.9 G/DL (6.4-8.3)
[2017-05-19] MEDS: DILTIAZEM 60 MG TABLET PO SCH ×2 (09:26→21:59)
[2017-05-19] MEDS: INSULIN GLARGINE 100 UNIT/ML SUBCUT SCH (09:26)
[2017-05-19] MEDS: ASPIRIN EC 81 MG TABLET PO SCH (09:26)
[2017-05-19] MEDS: AMIODARONE 200 MG TABLET PO SCH ×2 (09:26→21:57)
[2017-05-19] MEDS: CALCIUM (CARBONATE)/VITAMIN D 600 MG-400 UNIT TABLET PO SCH ×2 (09:26→21:57)
[2017-05-19] MEDS: LEVOFLOXACIN 250 MG TABLET PO SCH (09:29)
[2017-05-19] MEDS: CARVEDILOL 25 MG TABLET PO SCH ×2 (09:29→16:25)
[2017-05-19] MEDS: INSULIN REGULAR 100 UNIT/ML SUBCUT SCH ×3 (10:09→17:51)
[2017-05-19] MEDS: SUCRALFATE 1 GM/10 ML UDCUP PO SCH ×3 (12:08→21:57)
[2017-05-20] MEDS: ALBUTEROL/IPRATROPIUM 3 ML NEB RESP TX SCH ×4 (00:20→19:27)
[2017-05-20 04:58] LABS: Basophils % 0.1 % (0.0-0.8); Hematocrit 28.2 VOL% (35.7-47.0); Hemoglobin 9.1 GM/DL (12.0-16.0); Immature Granulocytes Absolute 0.38 #; Lymphocytes # 0.6 10*3/uL (1.4-4.0); Lymphocytes % 5.9 % (21.3-54.2); Mean Corpuscular HGB Conc 32.3 GM/DL (32-36); Mean Corpuscular Hemoglobin 30 PG (27-34); Mean Corpuscular Volume 93.1 FL (87-102); Monocytes # 0.4 10*3/uL (0.11-0.8); Monocytes % 4.6 % (1.7-12.7); NRBC # 0.51 10*3/uL; Neutrophils # 8.2 10*3/uL (1.4-7.4); Neutrophils % 85.4 % (38.7-73.9); Red Blood Count 3.03 MC/CUMM (3.8-5.5); Red Cell Distribution Width 14.5 % (9.3-17.3); White Blood Count 9.6 T/CUMM (4-12)
[2017-05-20 05:02] LABS: Platelet Count 17 T/CUMM (130-400)
[2017-05-20 05:17] LABS: Giant Platelets Few; Hypochromasia 1+; Microcytosis Slight; Ovalocytes Slight; Platelet Estimate Decreased
[2017-05-20 05:34] LABS: Albumin 2.7 G/DL (3.4-5.0); Bilirubin,Total 0.7 MG/DL (0.2-1.0); Osmolality,Calculated 301.1 MOS/KG (273-304); Potassium 4.6 MMOL/L (3.5-5.1); Total Protein 7.9 G/DL (6.4-8.3)
[2017-05-20] MEDS: methylPREDNISolone SOD SUC 40 MG/1 ML VIAL IV SCH ×2 (06:48→17:40)
[2017-05-20] MEDS ORDERED: DEXAMETHASONE 10 MG/1 ML VIAL IV ONE (07:29)
[2017-05-20] MEDS: INSULIN REGULAR 100 UNIT/ML SUBCUT SCH ×4 (07:48→17:43)
[2017-05-20] MEDS ORDERED: DEXAMETHASONE INJ 20 MG in SODIUM CHLORIDE 0.9% 50 ML IV ONE (08:00)
[2017-05-20] MEDS: SUCRALFATE 1 GM/10 ML UDCUP PO SCH ×4 (08:13→21:33)
[2017-05-20] MEDS: INSULIN GLARGINE 100 UNIT/ML SUBCUT SCH (08:13)
[2017-05-20] MEDS: DILTIAZEM 60 MG TABLET PO SCH ×2 (12:50→21:30)
[2017-05-20] MEDS: AMIODARONE 200 MG TABLET PO SCH ×2 (12:50→21:33)
[2017-05-20] MEDS: CARVEDILOL 25 MG TABLET PO SCH ×2 (12:51→16:11)
[2017-05-20] MEDS: ASPIRIN EC 81 MG TABLET PO SCH (12:51)
[2017-05-20] MEDS: CALCIUM (CARBONATE)/VITAMIN D 600 MG-400 UNIT TABLET PO SCH ×2 (12:51→21:30)
[2017-05-21] MEDS: ALBUTEROL/IPRATROPIUM 3 ML NEB RESP TX SCH ×4 (01:04→19:05)
[2017-05-21] MEDS: INSULIN REGULAR 100 UNIT/ML SUBCUT SCH ×5 (05:22→20:43)
[2017-05-21 05:41] LABS: Basophils # 0.1 10*3/uL (0.0-0.2); Basophils % 0.4 % (0.0-0.8); Hematocrit 27.6 VOL% (35.7-47.0); Hemoglobin 9.3 GM/DL (12.0-16.0); Immature Granulocytes % 6.3 %; Immature Granulocytes Absolute 0.81 #; Lymphocytes % 7.5 % (21.3-54.2); Mean Corpuscular HGB Conc 33.7 GM/DL (32-36); Mean Corpuscular Hemoglobin 31 PG (27-34); Monocytes # 0.7 10*3/uL (0.11-0.8); Monocytes % 5.4 % (1.7-12.7); Neutrophils # 10.4 10*3/uL (1.4-7.4); Neutrophils % 80.4 % (38.7-73.9); Red Cell Distribution Width 14.6 % (9.3-17.3)
[2017-05-21 05:53] LABS: Platelet Count 18 T/CUMM (130-400)
[2017-05-21 06:17] LABS: Albumin 2.6 G/DL (3.4-5.0); Bilirubin,Total 1.3 MG/DL (0.2-1.0); Calcium 9.5 MG/DL (8.5-10.1); Osmolality,Calculated 294.3 MOS/KG (273-304); Potassium 3.7 MMOL/L (3.5-5.1); Total Protein 7.8 G/DL (6.4-8.3)
[2017-05-21 06:20] LABS: Band Neutrophils 7 % (0-10); Lymphocytes 15 % (20-55); Macrocytosis 1+; Nucleated Red Blood Cells 7 (0-5); Platelet Estimate Decreased; Segmented Neutrophils 74 % (50-85); Total Cells Counted 100
[2017-05-21] MEDS: methylPREDNISolone SOD SUC 40 MG/1 ML VIAL IV SCH ×2 (06:54→17:14)
[2017-05-21] MEDS: ACETAMINOPHEN 325 MG TABLET PO PRN (08:58)
[2017-05-21] MEDS: INSULIN GLARGINE 100 UNIT/ML SUBCUT SCH (08:59)
[2017-05-21] MEDS: CARVEDILOL 25 MG TABLET PO SCH ×2 (09:00→17:14)
[2017-05-21] MEDS: CALCIUM (CARBONATE)/VITAMIN D 600 MG-400 UNIT TABLET PO SCH ×2 (09:00→20:42)
[2017-05-21] MEDS: DILTIAZEM 60 MG TABLET PO SCH ×2 (09:00→20:42)
[2017-05-21] MEDS: AMIODARONE 200 MG TABLET PO SCH ×2 (09:00→20:43)
[2017-05-21] MEDS: SUCRALFATE 1 GM/10 ML UDCUP PO SCH ×4 (09:00→20:43)
[2017-05-21] MEDS: ASPIRIN EC 81 MG TABLET PO SCH (09:01)
[2017-05-21] MEDS: LEVOFLOXACIN 250 MG TABLET PO SCH (09:04)
[2017-05-22] MEDS: ALBUTEROL/IPRATROPIUM 3 ML NEB RESP TX SCH ×4 (00:35→20:10)
[2017-05-22 05:18] LABS: Basophils % 0.2 % (0.0-0.8); Hematocrit 27.2 VOL% (35.7-47.0); Hemoglobin 8.7 GM/DL (12.0-16.0); Immature Granulocytes % 5.4 %; Lymphocytes # 0.7 10*3/uL (1.4-4.0); Lymphocytes % 4.3 % (21.3-54.2); Mean Corpuscular Hemoglobin 30 PG (27-34); Mean Corpuscular Volume 95.1 FL (87-102); Monocytes # 1.1 10*3/uL (0.11-0.8); Monocytes % 6.6 % (1.7-12.7); NRBC # 1.55 10*3/uL; Neutrophils % 83.5 % (38.7-73.9); Red Blood Count 2.86 MC/CUMM (3.8-5.5); Red Cell Distribution Width 15.3 % (9.3-17.3); White Blood Count 16.7 T/CUMM (4-12)
[2017-05-22] MEDS: methylPREDNISolone SOD SUC 40 MG/1 ML VIAL IV SCH ×2 (05:19→17:00)
[2017-05-22 05:36] LABS: Platelet Count 19 T/CUMM (130-400)
[2017-05-22 05:55] LABS: Folate 12.9 NG/ML (5.4-24.0)
[2017-05-22 06:18] LABS: Hypochromasia 2+; Lymphocytes 4 % (20-55); Nucleated Red Blood Cells 12 (0-5); Platelet Estimate Decreased; Segmented Neutrophils 89 % (50-85); Total Cells Counted 100
[2017-05-22 07:45] LABS: Albumin 2.4 G/DL (3.4-5.0); Bilirubin,Total 0.4 MG/DL (0.2-1.0); Calcium 10.5 MG/DL (8.5-10.1); Osmolality,Calculated 307.4 MOS/KG (273-304); Potassium 3.7 MMOL/L (3.5-5.1); Total Protein 7.9 G/DL (6.4-8.3)
[2017-05-22] MEDS: INSULIN GLARGINE 100 UNIT/ML SUBCUT SCH (08:59)
[2017-05-22] MEDS: SUCRALFATE 1 GM/10 ML UDCUP PO SCH ×5 (09:00→21:10)
[2017-05-22] MEDS: INSULIN REGULAR 100 UNIT/ML SUBCUT SCH ×4 (09:00→21:11)
[2017-05-22] MEDS: ASPIRIN EC 81 MG TABLET PO SCH (11:41)
[2017-05-22] MEDS: AMIODARONE 200 MG TABLET PO SCH ×2 (11:41→21:10)
[2017-05-22] MEDS: CALCIUM (CARBONATE)/VITAMIN D 600 MG-400 UNIT TABLET PO SCH ×2 (11:41→21:11)
[2017-05-22] MEDS: DILTIAZEM 60 MG TABLET PO SCH ×2 (11:41→21:10)
[2017-05-22] MEDS: CARVEDILOL 25 MG TABLET PO SCH ×2 (11:41→16:57)
[2017-05-23] MEDS: ALBUTEROL/IPRATROPIUM 3 ML NEB RESP TX SCH ×4 (00:56→19:33)
[2017-05-23] MEDS: methylPREDNISolone SOD SUC 40 MG/1 ML VIAL IV SCH ×2 (06:31→17:00)
[2017-05-23 08:34] LABS: Basophils % 0.2 % (0.0-0.8); Hematocrit 25.9 VOL% (35.7-47.0); Hemoglobin 8.6 GM/DL (12.0-16.0); Immature Granulocytes Absolute 0.48 #; Lymphocytes # 1.1 10*3/uL (1.4-4.0); Lymphocytes % 6.5 % (21.3-54.2); Mean Corpuscular HGB Conc 33.2 GM/DL (32-36); Mean Corpuscular Hemoglobin 31 PG (27-34); Mean Corpuscular Volume 93.8 FL (87-102); NRBC # 1.34 10*3/uL; Neutrophils # 13.7 10*3/uL (1.4-7.4); Neutrophils % 84.3 % (38.7-73.9); Red Blood Count 2.76 MC/CUMM (3.8-5.5); Red Cell Distribution Width 16.9 % (9.3-17.3); White Blood Count 16.3 T/CUMM (4-12)
[2017-05-23] MEDS: CARVEDILOL 25 MG TABLET PO SCH ×2 (08:42→16:58)
[2017-05-23] MEDS: SUCRALFATE 1 GM/10 ML UDCUP PO SCH ×5 (08:42→21:09)
[2017-05-23] MEDS: INSULIN GLARGINE 100 UNIT/ML SUBCUT SCH (08:42)
[2017-05-23] MEDS: CALCIUM (CARBONATE)/VITAMIN D 600 MG-400 UNIT TABLET PO SCH ×2 (08:42→21:09)
[2017-05-23] MEDS: DILTIAZEM 60 MG TABLET PO SCH ×2 (08:42→21:09)
[2017-05-23] MEDS: AMIODARONE 200 MG TABLET PO SCH ×2 (08:43→21:09)
[2017-05-23] MEDS: INSULIN REGULAR 100 UNIT/ML SUBCUT SCH ×4 (08:43→21:10)
[2017-05-23] MEDS: ASPIRIN EC 81 MG TABLET PO SCH (08:43)
[2017-05-23 09:01] LABS: Platelet Count 19 T/CUMM (130-400)
[2017-05-23 09:20] LABS: Osmolality,Calculated 289.7 MOS/KG (273-304)
[2017-05-23 10:49] LABS: Hypochromasia 2+; Polychromasia Slight; Target Cells Slight
[2017-05-24] MEDS: ALBUTEROL/IPRATROPIUM 3 ML NEB RESP TX SCH ×4 (01:38→20:14)
[2017-05-24 05:20] LABS: Basophils % 0.1 % (0.0-0.8); Hematocrit 26.5 VOL% (35.7-47.0); Hemoglobin 8.9 GM/DL (12.0-16.0); Immature Granulocytes % 1.4 %; Immature Granulocytes Absolute 0.19 #; Lymphocytes # 0.4 10*3/uL (1.4-4.0); Lymphocytes % 2.8 % (21.3-54.2); Mean Corpuscular HGB Conc 33.6 GM/DL (32-36); Mean Corpuscular Hemoglobin 31 PG (27-34); Mean Corpuscular Volume 93.3 FL (87-102); Monocytes # 0.6 10*3/uL (0.11-0.8); Monocytes % 4.2 % (1.7-12.7); NRBC # 0.79 10*3/uL; Neutrophils # 12.8 10*3/uL (1.4-7.4); Neutrophils % 91.5 % (38.7-73.9); Red Blood Count 2.84 MC/CUMM (3.8-5.5); Red Cell Distribution Width 17.7 % (9.3-17.3)
[2017-05-24 05:26] LABS: Platelet Count 19 T/CUMM (130-400)
[2017-05-24 05:43] LABS: Band Neutrophils 2 % (0-10); Giant Platelets Few; Lymphocytes 2 % (20-55); Nucleated Red Blood Cells 7 (0-5); Platelet Estimate Decreased; Segmented Neutrophils 93 % (50-85); Total Cells Counted 100
[2017-05-24 05:44] LABS: Hypochromasia 1+; Ovalocytes Slight
[2017-05-24 05:49] LABS: Osmolality,Calculated 299.7 MOS/KG (273-304); Potassium 4.3 MMOL/L (3.5-5.1)
[2017-05-24] MEDS: methylPREDNISolone SOD SUC 40 MG/1 ML VIAL IV SCH ×2 (09:09→18:01)
[2017-05-24] MEDS: CALCIUM (CARBONATE)/VITAMIN D 600 MG-400 UNIT TABLET PO SCH ×2 (09:10→20:32)
[2017-05-24] MEDS: DILTIAZEM 60 MG TABLET PO SCH ×2 (09:10→20:32)
[2017-05-24] MEDS: CARVEDILOL 25 MG TABLET PO SCH ×2 (09:10→16:15)
[2017-05-24] MEDS: INSULIN REGULAR 100 UNIT/ML SUBCUT SCH ×4 (09:11→20:32)
[2017-05-24] MEDS: INSULIN GLARGINE 100 UNIT/ML SUBCUT SCH (09:11)
[2017-05-24] MEDS: ASPIRIN EC 81 MG TABLET PO SCH (09:11)
[2017-05-24] MEDS: AMIODARONE 200 MG TABLET PO SCH (09:11)
[2017-05-24] MEDS: SUCRALFATE 1 GM/10 ML UDCUP PO SCH ×4 (09:12→20:32)
[2017-05-24] MEDS: FLUCONAZOLE 200 MG TABLET PO SCH (11:35)
[2017-05-25] MEDS: ALBUTEROL/IPRATROPIUM 3 ML NEB RESP TX SCH ×4 (01:26→19:36)
[2017-05-25] MEDS: methylPREDNISolone SOD SUC 40 MG/1 ML VIAL IV SCH ×2 (05:25→17:42)
[2017-05-25 08:39] LABS: Basophils % 0.2 % (0.0-0.8); Hematocrit 25.3 VOL% (35.7-47.0); Immature Granulocytes % 0.9 %; Immature Granulocytes Absolute 0.09 #; Lymphocytes # 0.3 10*3/uL (1.4-4.0); Lymphocytes % 2.8 % (21.3-54.2); Mean Corpuscular HGB Conc 31.6 GM/DL (32-36); Mean Corpuscular Hemoglobin 31 PG (27-34); Mean Corpuscular Volume 97.3 FL (87-102); Monocytes # 0.3 10*3/uL (0.11-0.8); Monocytes % 3.2 % (1.7-12.7); NRBC # 0.46 10*3/uL; Neutrophils # 9.1 10*3/uL (1.4-7.4); Neutrophils % 92.9 % (38.7-73.9); Red Cell Distribution Width 18.4 % (9.3-17.3); White Blood Count 9.8 T/CUMM (4-12)
[2017-05-25 08:41] LABS: Platelet Count 19 T/CUMM (130-400)
[2017-05-25] MEDS: INSULIN REGULAR 100 UNIT/ML SUBCUT SCH ×3 (08:44→16:03)
[2017-05-25 09:24] LABS: Lymphocytes 4 % (20-55); Nucleated Red Blood Cells 5 (0-5); Segmented Neutrophils 93 % (50-85); Total Cells Counted 100
[2017-05-25 09:25] LABS: Hypochromasia 1+; Macrocytosis 1+; Tear Drop Cells Slight
[2017-05-25 09:26] LABS: Platelet Estimate Decreased
[2017-05-25] MEDS: SUCRALFATE 1 GM/10 ML UDCUP PO SCH ×4 (11:48→21:07)
[2017-05-25] MEDS: CALCIUM (CARBONATE)/VITAMIN D 600 MG-400 UNIT TABLET PO SCH ×2 (11:49→21:07)
[2017-05-25] MEDS: INSULIN GLARGINE 100 UNIT/ML SUBCUT SCH (11:49)
[2017-05-25] MEDS: ASPIRIN EC 81 MG TABLET PO SCH (11:49)
[2017-05-25] MEDS: CARVEDILOL 25 MG TABLET PO SCH ×2 (11:50→16:00)
[2017-05-25] MEDS: DILTIAZEM 60 MG TABLET PO SCH ×2 (11:50→21:08)
[2017-05-26] MEDS: ALBUTEROL/IPRATROPIUM 3 ML NEB RESP TX SCH ×4 (00:23→19:10)
[2017-05-26] MEDS: methylPREDNISolone SOD SUC 40 MG/1 ML VIAL IV SCH ×2 (06:20→17:19)
[2017-05-26 06:23] LABS: Basophils % 0.1 % (0.0-0.8); Hematocrit 21.9 VOL% (35.7-47.0); Hemoglobin 7.2 GM/DL (12.0-16.0); Immature Granulocytes % 0.5 %; Immature Granulocytes Absolute 0.04 #; Lymphocytes # 0.4 10*3/uL (1.4-4.0); Lymphocytes % 4.9 % (21.3-54.2); Mean Corpuscular HGB Conc 32.9 GM/DL (32-36); Mean Corpuscular Hemoglobin 31 PG (27-34); Mean Corpuscular Volume 95.2 FL (87-102); Monocytes # 0.3 10*3/uL (0.11-0.8); Monocytes % 4.5 % (1.7-12.7); NRBC # 0.43 10*3/uL; Neutrophils # 6.8 10*3/uL (1.4-7.4); White Blood Count 7.5 T/CUMM (4-12)
[2017-05-26 06:27] LABS: Platelet Count 28 T/CUMM (130-400)
[2017-05-26 06:54] LABS: Albumin 1.9 G/DL (3.4-5.0); Bilirubin,Total 0.7 MG/DL (0.2-1.0); Calcium 9.7 MG/DL (8.5-10.1); Osmolality,Calculated 298.7 MOS/KG (273-304); Potassium 4.8 MMOL/L (3.5-5.1); Total Protein 7.3 G/DL (6.4-8.3)
[2017-05-26 07:07] LABS: Band Neutrophils 4 % (0-10); Hypochromasia 1+; Lymphocytes 5 % (20-55); Macrocytosis 1+; Nucleated Red Blood Cells 7 (0-5); Platelet Estimate Decreased; Segmented Neutrophils 87 % (50-85); Total Cells Counted 100
[2017-05-26 07:08] LABS: Ovalocytes Slight; Tear Drop Cells Slight
[2017-05-26] MEDS: INSULIN REGULAR 100 UNIT/ML SUBCUT SCH ×5 (07:37→23:09)
[2017-05-26] MEDS: CARVEDILOL 25 MG TABLET PO SCH ×2 (08:49→17:16)
[2017-05-26] MEDS: SUCRALFATE 1 GM/10 ML UDCUP PO SCH ×4 (08:49→23:10)
[2017-05-26] MEDS: ASPIRIN EC 81 MG TABLET PO SCH (08:49)
[2017-05-26] MEDS: INSULIN GLARGINE 100 UNIT/ML SUBCUT SCH (08:49)
[2017-05-26] MEDS: DILTIAZEM 60 MG TABLET PO SCH ×2 (08:49→23:10)
[2017-05-26] MEDS: CALCIUM (CARBONATE)/VITAMIN D 600 MG-400 UNIT TABLET PO SCH ×2 (08:49→23:10)
[2017-05-27] MEDS: ALBUTEROL/IPRATROPIUM 3 ML NEB RESP TX SCH ×3 (01:29→12:12)
[2017-05-27 05:26] LABS: Basophils % 0.2 % (0.0-0.8); Hematocrit 22.6 VOL% (35.7-47.0); Hemoglobin 7.1 GM/DL (12.0-16.0); Immature Granulocytes % 0.2 %; Immature Granulocytes Absolute 0.01 #; Lymphocytes # 0.3 10*3/uL (1.4-4.0); Lymphocytes % 5.5 % (21.3-54.2); Mean Corpuscular HGB Conc 31.4 GM/DL (32-36); Mean Corpuscular Hemoglobin 30 PG (27-34); Mean Corpuscular Volume 96.6 FL (87-102); Monocytes # 0.2 10*3/uL (0.11-0.8); Monocytes % 3.7 % (1.7-12.7); NRBC # 0.36 10*3/uL; Neutrophils # 4.5 10*3/uL (1.4-7.4); Neutrophils % 90.4 % (38.7-73.9); Red Blood Count 2.34 MC/CUMM (3.8-5.5); Red Cell Distribution Width 17.6 % (9.3-17.3); White Blood Count 4.9 T/CUMM (4-12)
[2017-05-27 05:34] LABS: Platelet Count 32 T/CUMM (130-400)
[2017-05-27 05:48] LABS: Band Neutrophils 6 % (0-10); Giant Platelets Few; Hypochromasia 1+; Lymphocytes 7 % (20-55); Nucleated Red Blood Cells 7 (0-5); Ovalocytes Slight; Platelet Estimate Decreased; Segmented Neutrophils 87 % (50-85); Total Cells Counted 100
[2017-05-27 05:49] LABS: Macrocytosis Slight
[2017-05-27 05:56] LABS: Albumin 1.8 G/DL (3.4-5.0); Bilirubin,Total 0.6 MG/DL (0.2-1.0); Calcium 10.7 MG/DL (8.5-10.1); Osmolality,Calculated 308.5 MOS/KG (273-304); Potassium 5.8 MMOL/L (3.5-5.1); Total Protein 7.9 G/DL (6.4-8.3)
[2017-05-27] MEDS ORDERED: SODIUM CHLORIDE 0.9% 1,000 ML IV PRN (07:02)
[2017-05-27] MEDS: methylPREDNISolone SOD SUC 40 MG/1 ML VIAL IV SCH (07:03)
[2017-05-27] MEDS: INSULIN GLARGINE 100 UNIT/ML SUBCUT SCH (09:22)
[2017-05-27] MEDS: FLUCONAZOLE 200 MG TABLET PO SCH (09:23)
[2017-05-27] MEDS: CARVEDILOL 25 MG TABLET PO SCH ×2 (09:23→17:00)
[2017-05-27] MEDS: SUCRALFATE 1 GM/10 ML UDCUP PO SCH ×3 (09:23→17:38)
[2017-05-27] MEDS: CALCIUM (CARBONATE)/VITAMIN D 600 MG-400 UNIT TABLET PO SCH (09:24)
[2017-05-27] MEDS: INSULIN REGULAR 100 UNIT/ML SUBCUT SCH ×3 (09:24→17:38)
[2017-05-27] MEDS: DILTIAZEM 60 MG TABLET PO SCH (09:24)
[2017-05-27] MEDS: ASPIRIN EC 81 MG TABLET PO SCH (09:24)
[2017-05-27 11:59] VITALS: BP 131/93
== END 2017-05-27 17:40 | disposition home health service (06) | DRG 682 ==
LOC: EDBD → EDUNIT# → N.ED 11:58 → SUATTDRO 14:43 → N.EDINP 14:43 → N.ICU 17:58 → N.TELEN 05-12 23:19
PROVIDERS: ADMIT Family Medicine; ATTEND Hospitalist

== ENCOUNTER 2017-05-29 10:49 | Inpatient (IN) ==
[2017-05-29] MEDS ORDERED: SODIUM CHLORIDE 0.9% 500 ML IV STA (11:00)
[2017-05-29] MEDS ORDERED: HEPARIN LOCK FLUSH 500 UNIT/5 ML SYRINGE IV ONE (11:07)
[2017-05-29 11:20] LABS: Basophils % 0.3 % (0.0-0.8); Eosinophils % 0.5 % (0.00-10.9); Hematocrit 23.2 VOL% (35.7-47.0); Hemoglobin 7.5 GM/DL (12.0-16.0); Immature Granulocytes % 0.8 %; Immature Granulocytes Absolute 0.03 #; Lymphocytes # 0.2 10*3/uL (1.4-4.0); Mean Corpuscular HGB Conc 32.3 GM/DL (32-36); Mean Corpuscular Hemoglobin 30 PG (27-34); Mean Corpuscular Volume 91.3 FL (87-102); Monocytes # 0.1 10*3/uL (0.11-0.8); Monocytes % 2.3 % (1.7-12.7); NRBC # 0.25 10*3/uL; Neutrophils # 3.6 10*3/uL (1.4-7.4); Neutrophils % 91.1 % (38.7-73.9); Red Blood Count 2.54 MC/CUMM (3.8-5.5); Red Cell Distribution Width 18.2 % (9.3-17.3)
[2017-05-29 11:25] LABS: Platelet Count 12 T/CUMM (130-400)
[2017-05-29] MEDS ORDERED: NOREPINEPHRINE 4 MG/4 ML VIAL IV ONE (11:25)
[2017-05-29] MEDS: NOREPINEPHRINE 8 MG in SODIUM CHLORIDE 0.9% 242 ML IV SCH ×2 (11:35→18:28)
[2017-05-29 11:48] LABS: Albumin 1.4 G/DL (3.4-5.0); Bilirubin,Total 0.4 MG/DL (0.2-1.0); Calcium 7.6 MG/DL (8.5-10.1); Osmolality,Calculated 291.3 MOS/KG (273-304); Potassium 3.4 MMOL/L (3.5-5.1); Total Protein 6.2 G/DL (6.4-8.3)
[2017-05-29] MEDS ORDERED: diphenhydrAMINE CAP 25 MG CAPSULE PO PRN (11:51)
[2017-05-29] MEDS ORDERED: ONDANSETRON 4 MG/2 ML VIAL IV PRN (11:51)
[2017-05-29 11:53] LABS: Band Neutrophils 7 % (0-10); Eosinophils 1 % (0-10); Hypochromasia 1+; Lymphocytes 10 % (20-55); Nucleated Red Blood Cells 6 (0-5); Platelet Estimate Decreased; Segmented Neutrophils 78 % (50-85); Total Cells Counted 100
[2017-05-29 11:54] LABS: Giant Platelets Few; Macrocytosis Slight; Ovalocytes Slight
[2017-05-29] MEDS ORDERED: SODIUM CHLORIDE 0.9% 1,000 ML IV SCH (12:00)
[2017-05-29] MEDS ORDERED: SODIUM CHLORIDE 0.9% 1,000 ML IV PRN ×2 (14:01→18:32)
[2017-05-29] MEDS: ENOXAPARIN 30 MG/0.3 ML SYRINGE SUBCUT SCH (14:06)
[2017-05-29 14:14] LABS: ABG Base Excess 5.4 MMOL/L (-2.5-2.5); ABG HCO3 27.2 MMOL/L (20-26); ABG Oxygen Saturation 93.5 % (95-100); ABG PCO2 28.7 MM HG (35-48); ABG PO2 65.8 MM HG (80-95)
[2017-05-29 14:17] LABS: ABG PH 7.594 (7.35-7.45)
[2017-05-29] MEDS: DEXTROSE 5% NACL 0.9% 1,000 ML IV SCH (15:19)
[2017-05-29] MEDS: CEFTAROLINE 300 MG in SODIUM CHLORIDE 0.9% 100 ML IV SCH (17:18)
[2017-05-29] MEDS ORDERED: ROCURONIUM 100 MG/10 ML VIAL IV ONE (19:00)
[2017-05-29] MEDS ORDERED: ETOMIDATE 20 MG/10 ML VIAL IV ONE (19:00)
[2017-05-29] MEDS: VASOPRESSIN 100 UNITS in SODIUM CHLORIDE 0.9% 95 ML IV SCH (19:02)
[2017-05-29] MEDS: PHENYLEPHRINE DRIP 40 MG/250 ML PREMIX IV SCH (21:07)
[2017-05-29] MEDS: NOREPINEPHRINE 16 MG in SODIUM CHLORIDE 0.9% 234 ML IV SCH (21:36)
[2017-05-30] MEDS: VASOPRESSIN 100 UNITS in SODIUM CHLORIDE 0.9% 95 ML IV SCH ×2 (00:31→03:08)
[2017-05-30] MEDS: CEFTAROLINE 300 MG in SODIUM CHLORIDE 0.9% 100 ML IV SCH ×2 (03:33→15:20)
[2017-05-30] MEDS: DEXTROSE 5% NACL 0.9% 1,000 ML IV SCH ×3 (03:40→16:43)
[2017-05-30 04:18] LABS: ABG Base Excess 3.2 MMOL/L (-2.5-2.5); ABG HCO3 27.4 MMOL/L (20-26); ABG PCO2 33.5 MM HG (35-48); ABG PH 7.505 (7.35-7.45); ABG TCO2 25.2 MMOL/L (23-27)
[2017-05-30 06:29] LABS: Albumin 1.3 G/DL (3.4-5.0); Calcium 7.2 MG/DL (8.5-10.1); Osmolality,Calculated 299.8 MOS/KG (273-304); Potassium 3.1 MMOL/L (3.5-5.1); Total Protein 5.3 G/DL (6.4-8.3)
[2017-05-30 07:02] LABS: Basophils % 0.9 % (0.0-0.8); Eosinophils # 0.1 10*3/uL (0.0-0.87); Eosinophils % 2.1 % (0.00-10.9); Hematocrit 29.1 VOL% (35.7-47.0); Hemoglobin 8.8 GM/DL (12.0-16.0); Immature Granulocytes % 0.9 %; Immature Granulocytes Absolute 0.03 #; Lymphocytes # 0.4 10*3/uL (1.4-4.0); Lymphocytes % 12.5 % (21.3-54.2); Mean Corpuscular HGB Conc 30.2 GM/DL (32-36); Mean Corpuscular Hemoglobin 30 PG (27-34); Mean Corpuscular Volume 98.3 FL (87-102); Mean Platelet Volume 10.7 FL (9.6-12.0); Monocytes # 0.1 10*3/uL (0.11-0.8); Monocytes % 2.4 % (1.7-12.7); Neutrophils # 2.7 10*3/uL (1.4-7.4); Neutrophils % 81.2 % (38.7-73.9); Red Blood Count 2.96 MC/CUMM (3.8-5.5); Red Cell Distribution Width 18.2 % (9.3-17.3); White Blood Count 3.3 T/CUMM (4-12)
[2017-05-30 07:06] LABS: Platelet Count 137 T/CUMM (130-400)
[2017-05-30 07:27] LABS: Band Neutrophils 11 % (0-10); Eosinophils 2 % (0-10); Lymphocytes 12 % (20-55); Nucleated Red Blood Cells 1 (0-5); Segmented Neutrophils 72 % (50-85); Total Cells Counted 100
[2017-05-30 07:28] LABS: Giant Platelets Few; Macrocytosis Slight; Platelet Estimate Normal
[2017-05-30] MEDS: PHENYLEPHRINE DRIP 40 MG/250 ML PREMIX IV SCH (10:49)
[2017-05-30] MEDS: PROPOFOL 1,000 MG/100 ML BOTTLE IV SCH (10:57)
[2017-05-30] MEDS ORDERED: POTASSIUM CHLORIDE RIDER 10 MEQ in PREMIX 1 EACH IV PRN (11:12)
[2017-05-30] MEDS: NOREPINEPHRINE 16 MG in SODIUM CHLORIDE 0.9% 234 ML IV SCH ×2 (11:20→18:16)
[2017-05-30] MEDS: POTASSIUM CHLORIDE RIDER 20 MEQ in PREMIX 1 EACH IV PRN ×2 (11:32→13:26)
[2017-05-30] MEDS: INSULIN REGULAR 100 UNIT/ML SUBCUT SCH ×3 (11:59→23:50)
[2017-05-30] MEDS: ENOXAPARIN 30 MG/0.3 ML SYRINGE SUBCUT SCH (12:27)
[2017-05-30 17:25] LABS: Apearance,Urine CLOUDY (Clear); Bilirubin,Urine Negative (Negative); Blood, Urine Moderate mg/dL (Negative); Glucose,Urine (UA) Negative (Negative); Ketones,Urine Negative (Negative); Mucus,Urine Occasional /LPF (Occasional); Nitrite,Urine Negative (Negative); Protein,Urine 100 MG/DL; RBC,Urine 23 /HPF (0-4); Squamous Epithelial Cell,Urine Occasional /HPF (0-10); Urine Color Yellow (Yellow); Urine Specific Gravity 1.012 (1.001-1.035); Urine Urobilinogen < 2.0 EU/DL (0.2-1.0); WBC,Urine 15 /HPF (0-6)
[2017-05-30 17:51] LABS: Barbiturates Screen,Urine Negative (Negative); Benzodiazepines Screen,Urine Negative (Negative); Cannabinoid Screen,Urine Negative (Negative); Opiate Screen,Urine Positive (Negative); Phencyclidine Screen,Urine Negative (Negative)
[2017-05-31] MEDS: PHENYLEPHRINE DRIP 40 MG/250 ML PREMIX IV SCH (00:17)
[2017-05-31] MEDS: NOREPINEPHRINE 16 MG in SODIUM CHLORIDE 0.9% 234 ML IV SCH ×3 (00:41→20:14)
[2017-05-31] MEDS: CEFTAROLINE 300 MG in SODIUM CHLORIDE 0.9% 100 ML IV SCH (03:01)
[2017-05-31 03:10] LABS: Basophils % 0.7 % (0.0-0.8); Eosinophils % 2.2 % (0.00-10.9); Hematocrit 17.2 VOL% (35.7-47.0); Immature Granulocytes % 0.7 %; Immature Granulocytes Absolute 0.01 #; Lymphocytes # 0.1 10*3/uL (1.4-4.0); Lymphocytes % 6.6 % (21.3-54.2); Mean Corpuscular HGB Conc 32.6 GM/DL (32-36); Mean Corpuscular Hemoglobin 30 PG (27-34); Mean Platelet Volume 11.1 FL (9.6-12.0); Monocytes # 0.1 10*3/uL (0.11-0.8); Monocytes % 3.7 % (1.7-12.7); Neutrophils # 1.2 10*3/uL (1.4-7.4); Neutrophils % 86.1 % (38.7-73.9); Platelet Count 79 T/CUMM (130-400); Red Blood Count 1.89 MC/CUMM (3.8-5.5); White Blood Count 1.4 T/CUMM (4-12)
[2017-05-31 03:21] LABS: Hemoglobin 5.6 GM/DL (12.0-16.0)
[2017-05-31 03:49] LABS: Potassium 3.9 MMOL/L (3.5-5.1)
[2017-05-31 04:21] LABS: ABG Base Excess -1.6 MMOL/L (-2.5-2.5); ABG Oxygen Saturation 91.2 % (95-100); ABG PCO2 31.1 MM HG (35-48); ABG PH 7.455 (7.35-7.45); ABG PO2 57.7 MM HG (80-95)
[2017-05-31] MEDS: MORPHINE 2 MG/1 ML SYRINGE IV PRN (04:36)
[2017-05-31 04:39] LABS: Eosinophils # 0.1 10*3/uL (0.0-0.87); Eosinophils % 4.9 % (0.00-10.9); Hematocrit 17.2 VOL% (35.7-47.0); Immature Granulocytes % 0.8 %; Immature Granulocytes Absolute 0.01 #; Lymphocytes # 0.1 10*3/uL (1.4-4.0); Lymphocytes % 8.1 % (21.3-54.2); Mean Corpuscular Hemoglobin 29 PG (27-34); Mean Platelet Volume 10.7 FL (9.6-12.0); Monocytes # 0.1 10*3/uL (0.11-0.8); Monocytes % 4.1 % (1.7-12.7); Neutrophils % 82.1 % (38.7-73.9); Platelet Count 75 T/CUMM (130-400); Red Blood Count 1.87 MC/CUMM (3.8-5.5); Red Cell Distribution Width 16.9 % (9.3-17.3); White Blood Count 1.2 T/CUMM (4-12)
[2017-05-31 04:47] LABS: Hemoglobin 5.5 GM/DL (12.0-16.0)
[2017-05-31 05:12] LABS: Band Neutrophils 10 % (0-10); Lymphocytes 12 % (20-55); Myelocytes 2 %; Segmented Neutrophils 70 % (50-85); Total Cells Counted 100
[2017-05-31 05:14] LABS: Elliptocytes Few; Hypochromasia 1+; Microcytosis 2+; Platelet Estimate Decreased
[2017-05-31] MEDS ORDERED: SODIUM CHLORIDE 0.9% 1,000 ML IV PRN ×3 (05:17→07:58)
[2017-05-31 05:18] LABS: Band Neutrophils 10 % (0-10); Eosinophils 1 % (0-10); Lymphocytes 4 % (20-55); Nucleated Red Blood Cells 1 (0-5); Segmented Neutrophils 81 % (50-85); Total Cells Counted 100
[2017-05-31 05:19] LABS: Giant Platelets Few; Hypochromasia 1+; Ovalocytes Slight; Platelet Estimate Decreased
[2017-05-31 05:20] LABS: Microcytosis 1+
[2017-05-31] MEDS: POTASSIUM CHLORIDE RIDER 20 MEQ in PREMIX 1 EACH IV PRN (05:50)
[2017-05-31] MEDS: INSULIN REGULAR 100 UNIT/ML SUBCUT SCH ×3 (05:52→19:59)
[2017-05-31] MEDS: DEXTROSE 5% NACL 0.9% 1,000 ML IV SCH ×3 (06:01→20:16)
[2017-05-31] MEDS: PROPOFOL 1,000 MG/100 ML BOTTLE IV SCH ×2 (08:41→22:58)
[2017-05-31 08:46] LABS: Immunoglobulin A 33 MG/DL (70-400); Immunoglobulin G 1900 MG/DL (700-1600); Immunoglobulin M < 21 MG/DL (40-230)
[2017-05-31 09:13] LABS: Immunoglobulin A (Chem) 33 MG/DL (70-400); Immunoglobulin G (Chem) 1900 MG/DL (700-1600); Immunoglobulin M (Chem) < 21 MG/DL (40-230)
[2017-05-31] MEDS ORDERED: metroNIDAZOLE INJ 500 MG in PREMIX 1 EACH IV SCH (11:00)
[2017-05-31 11:27] LABS: Albumin (SPE) 1.4 G/DL (3.2-5.3); Albumin (SPE) Rel % 28.6 %; Alpha 1 (SPE) 0.3 G/DL (0.1-0.4); Alpha 1 (SPE) Rel % 6.1 %; Alpha 2 (SPE) 0.6 G/DL (0.4-1.0); Beta (SPE) 0.6 G/DL (0.5-1.1); Beta (SPE) Rel % 12.4 %; Gamma (SPE) 2.1 G/DL (0.7-1.7); Gamma (SPE) Rel % 40.9 %
[2017-05-31] MEDS: ENOXAPARIN 30 MG/0.3 ML SYRINGE SUBCUT SCH (12:35)
[2017-05-31] MEDS: MEROPENEM 1,000 MG in SODIUM CHLORIDE 0.9% 100 ML IV SCH (12:52)
[2017-05-31] MEDS ORDERED: VALPROIC ACID INJ 500 MG in SODIUM CHLORIDE 0.9% 100 ML IV PRN (13:18)
[2017-05-31] MEDS ORDERED: GENTAMICIN INJ 160 MG in SODIUM CHLORIDE 0.9% 100 ML IV ONE (13:30)
[2017-05-31] MEDS ORDERED: AMINO ACIDS/DEXT/LYTES 5-15% 2,000 ML IV SCH (14:00)
[2017-05-31] MEDS ORDERED: VANCOMYCIN INJ 500 MG in SODIUM CHLORIDE 0.9% 100 ML IV PRN (14:30)
[2017-05-31] MEDS ORDERED: GLUCAGON 1 MG VIAL IM PRN (14:33)
[2017-05-31] MEDS ORDERED: DEXTROSE 50% 25 GM/50 ML VIAL IV PRN (14:33)
[2017-05-31] MEDS ORDERED: HEPARIN 5,000 UNIT/1 ML VIAL IV ONE (16:06)
[2017-05-31] MEDS: FAT EMULSION 20% 250 ML IV SCH (16:08)
[2017-05-31] MEDS: TRACE ELEMENTS (5) 1 ML, MULTIVITAMIN INJ 10 ML in AMINO ACIDS/DEXT/LYTES 5-15% 2,000 ML IV SCH (16:27)
[2017-05-31 16:58] LABS: Hematocrit 31.2 VOL% (35.7-47.0); Hemoglobin 10.4 GM/DL (12.0-16.0)
[2017-05-31] MEDS ORDERED: DEXTROSE 10% 1,000 ML IV PRN (17:00)
[2017-05-31 17:42] LABS: ABG Base Excess 1.5 MMOL/L (-2.5-2.5); ABG HCO3 25.4 MMOL/L (20-26); ABG Oxygen Saturation 81.8 % (95-100); ABG PO2 42.4 MM HG (80-95); ABG TCO2 22.3 MMOL/L (23-27)
[2017-05-31 17:43] LABS: Allen Test Positive; Pt O2 Delivery Device Ventilator
[2017-05-31] MEDS ORDERED: VANCOMYCIN INJ 1,000 MG in SODIUM CHLORIDE 0.9% 250 ML IV ONE (18:00)
[2017-05-31 19:12] LABS: ABG Base Excess 2.9 MMOL/L (-2.5-2.5); ABG HCO3 26.8 MMOL/L (20-26); ABG Oxygen Saturation 86.4 % (95-100); ABG PCO2 44.9 MM HG (35-48); ABG PH 7.405 (7.35-7.45); ABG PO2 51.1 MM HG (80-95); ABG TCO2 25.3 MMOL/L (23-27); Allen Test Positive
[2017-05-31] MEDS: ZINC OXIDE PASTE 113 GM TUBE TOP SCH (20:17)
[2017-05-31] MEDS: PHENYLEPHRINE INJ 160 MG in SODIUM CHLORIDE 0.9% 234 ML IV SCH (22:55)
[2017-05-31] MEDS: methylPREDNISolone SOD SUC 40 MG/1 ML VIAL IV SCH (22:55)
[2017-06-01] MEDS: INSULIN REGULAR 100 UNIT/ML SUBCUT SCH ×4 (00:23→18:07)
[2017-06-01] MEDS: DEXTROSE 5% NACL 0.9% 1,000 ML IV SCH (02:41)
[2017-06-01 03:47] LABS: Basophils % 0.7 % (0.0-0.8); Eosinophils % 0.7 % (0.00-10.9); Hematocrit 28.6 VOL% (35.7-47.0); Hemoglobin 10.7 GM/DL (12.0-16.0); Lymphocytes # 0.1 10*3/uL (1.4-4.0); Lymphocytes % 5.9 % (21.3-54.2); Mean Corpuscular HGB Conc 37.4 GM/DL (32-36); Mean Corpuscular Hemoglobin 34 PG (27-34); Mean Corpuscular Volume 90.2 FL (87-102); Neutrophils # 1.2 10*3/uL (1.4-7.4); Neutrophils % 89.7 % (38.7-73.9); Red Blood Count 3.17 MC/CUMM (3.8-5.5); Red Cell Distribution Width 15.1 % (9.3-17.3); White Blood Count 1.4 T/CUMM (4-12)
[2017-06-01 03:52] LABS: Platelet Count 24 T/CUMM (130-400)
[2017-06-01 04:18] LABS: ABG Base Excess -1.1 MMOL/L (-2.5-2.5); ABG HCO3 23.5 MMOL/L (20-26); ABG Oxygen Saturation 95.1 % (95-100); ABG PCO2 36.2 MM HG (35-48); ABG PH 7.413 (7.35-7.45); ABG PO2 71.8 MM HG (80-95); ABG TCO2 21.1 MMOL/L (23-27); Allen Test Positive; Pt O2 Delivery Device Ventilator
[2017-06-01 04:22] LABS: Band Neutrophils 16 % (0-10); Eosinophils 4 % (0-10); Lymphocytes 16 % (20-55); Nucleated Red Blood Cells 4 (0-5); Segmented Neutrophils 54 % (50-85); Total Cells Counted 100
[2017-06-01 04:23] LABS: Anisocytosis 1+; Poikilocytosis 1+
[2017-06-01] MEDS: methylPREDNISolone SOD SUC 40 MG/1 ML VIAL IV SCH ×3 (04:30→17:31)
[2017-06-01 04:36] LABS: Prealbumin 94.1 MG/DL (20-40)
[2017-06-01] MEDS ORDERED: SODIUM CHLORIDE 0.9% 1,000 ML IV PRN (04:38)
[2017-06-01] MEDS: PROPOFOL 1,000 MG/100 ML BOTTLE IV SCH ×2 (05:16→10:12)
[2017-06-01 07:18] LABS: Calcium 7.5 MG/DL (8.5-10.1)
[2017-06-01 07:19] LABS: Albumin 1.1 G/DL (3.4-5.0); Osmolality,Calculated 295.3 MOS/KG (273-304); Potassium 3.8 MMOL/L (3.5-5.1); Total Protein 5.8 G/DL (6.4-8.3)
[2017-06-01] MEDS ORDERED: MAGNESIUM SULF RIDER 4 GM in PREMIX 1 EACH IV PRN (08:13)
[2017-06-01] MEDS ORDERED: MAGNESIUM SULF RIDER 2 GM in PREMIX 1 EACH IV PRN (08:13)
[2017-06-01] MEDS: POTASSIUM CHLORIDE RIDER 20 MEQ in PREMIX 1 EACH IV PRN (10:01)
[2017-06-01] MEDS: MIDAZOLAM 100 MG in SODIUM CHLORIDE 0.9% 80 ML IV SCH (10:03)
[2017-06-01] MEDS: GEMFIBROZIL 600 MG TABLET NG SCH ×2 (10:17→21:34)
[2017-06-01] MEDS: ZINC OXIDE PASTE 113 GM TUBE TOP SCH ×2 (10:17→21:34)
[2017-06-01] MEDS: NOREPINEPHRINE 16 MG in SODIUM CHLORIDE 0.9% 234 ML IV SCH (11:19)
[2017-06-01 12:16] LABS: Immuno Free Light Chain Kappa 113.01 MG/DL (0.33-1.94); Immuno Free Light Chain Lambda 1.32 MG/DL (0.57-2.63); Immuno Free Light Chain Ratio 85.61 MG/DL (0.26-1.65)
[2017-06-01] MEDS: MEROPENEM 1,000 MG in SODIUM CHLORIDE 0.9% 100 ML IV SCH (12:42)
[2017-06-01 12:58] LABS: Hematocrit 26.4 VOL% (35.7-47.0); Hemoglobin 8.9 GM/DL (12.0-16.0)
[2017-06-01] MEDS: FAT EMULSION 20% 250 ML IV SCH (14:01)
[2017-06-01] MEDS: TRACE ELEMENTS (5) 1 ML, MULTIVITAMIN INJ 10 ML, INSULIN REGULAR 30 UNIT in AMINO ACIDS... IV SCH (17:28)
[2017-06-01] MEDS: TRACE ELEMENTS (5) 1 ML, MULTIVITAMIN INJ 10 ML in AMINO ACIDS/DEXT/LYTES 5-15% 2,000 ML IV SCH (17:29)
[2017-06-01] MEDS ORDERED: HEPARIN 10,000 UNIT/10 ML VIAL IV PRN (18:45)
[2017-06-01] MEDS ORDERED: VANCOMYCIN INJ 500 MG in SODIUM CHLORIDE 0.9% 100 ML IV ONE (21:00)
[2017-06-02] MEDS: methylPREDNISolone SOD SUC 40 MG/1 ML VIAL IV SCH ×5 (00:08→23:44)
[2017-06-02] MEDS: PHENYLEPHRINE INJ 160 MG in SODIUM CHLORIDE 0.9% 234 ML IV SCH ×2 (00:08→19:18)
[2017-06-02] MEDS: INSULIN REGULAR 100 UNIT/ML SUBCUT SCH ×5 (00:09→23:44)
[2017-06-02] MEDS: NOREPINEPHRINE 16 MG in SODIUM CHLORIDE 0.9% 234 ML IV SCH ×3 (00:09→18:21)
[2017-06-02] MEDS: DEXTROSE 5% NACL 0.9% 1,000 ML IV SCH ×3 (00:09→09:54)
[2017-06-02 04:27] LABS: ABG Base Excess -1.1 MMOL/L (-2.5-2.5); ABG HCO3 22.1 MMOL/L (20-26); ABG Oxygen Saturation 96.9 % (95-100); ABG PCO2 32.3 MM HG (35-48); ABG PH 7.453 (7.35-7.45); ABG PO2 90.7 MM HG (80-95); ABG TCO2 23.1 MMOL/L (23-27)
[2017-06-02 05:13] LABS: Basophils % 1.6 % (0.0-0.8); Hematocrit 34.1 VOL% (35.7-47.0); Hemoglobin 11.7 GM/DL (12.0-16.0); Immature Granulocytes % 15.1 %; Immature Granulocytes Absolute 0.28 #; Lymphocytes # 0.2 10*3/uL (1.4-4.0); Lymphocytes % 8.1 % (21.3-54.2); Mean Corpuscular HGB Conc 34.3 GM/DL (32-36); Mean Corpuscular Hemoglobin 30 PG (27-34); Mean Corpuscular Volume 87.2 FL (87-102); Mean Platelet Volume 12.6 FL (9.6-12.0); Monocytes # 0.1 10*3/uL (0.11-0.8); Monocytes % 2.7 % (1.7-12.7); NRBC # 0.02 10*3/uL; Neutrophils # 1.4 10*3/uL (1.4-7.4); Neutrophils % 72.5 % (38.7-73.9); Platelet Count 55 T/CUMM (130-400); Red Blood Count 3.91 MC/CUMM (3.8-5.5); Red Cell Distribution Width 14.7 % (9.3-17.3); White Blood Count 1.9 T/CUMM (4-12)
[2017-06-02 05:47] LABS: Osmolality,Calculated 293.7 MOS/KG (273-304); Potassium 3.5 MMOL/L (3.5-5.1)
[2017-06-02 05:49] LABS: Band Neutrophils 2 % (0-10); Hypochromasia 1+; Lymphocytes 9 % (20-55); Nucleated Red Blood Cells 1 (0-5); Ovalocytes Slight; Platelet Estimate Decreased; Segmented Neutrophils 87 % (50-85); Total Cells Counted 100
[2017-06-02 05:50] LABS: Giant Platelets Few; Microcytosis Slight
[2017-06-02] MEDS: POTASSIUM CHLORIDE RIDER 20 MEQ in PREMIX 1 EACH IV PRN ×2 (06:25→11:20)
[2017-06-02] MEDS ORDERED: EPOETIN ALFA 2,000 UNIT/1 ML VIAL IV PRN (06:42)
[2017-06-02] MEDS: ZINC OXIDE PASTE 113 GM TUBE TOP SCH ×2 (08:30→21:58)
[2017-06-02] MEDS: MIDAZOLAM 100 MG in SODIUM CHLORIDE 0.9% 80 ML IV SCH (14:34)
[2017-06-02] MEDS: MEROPENEM 1,000 MG in SODIUM CHLORIDE 0.9% 100 ML IV SCH (14:37)
[2017-06-02] MEDS: VORICONAZOLE IV SCH (14:37)
[2017-06-02] MEDS: SODIUM CHLORIDE 0.9% IV SCH (14:37)
[2017-06-02] MEDS: FAT EMULSION 20% 250 ML IV SCH (14:38)
[2017-06-02] MEDS: MORPHINE 2 MG/1 ML SYRINGE IV PRN (15:34)
[2017-06-02] MEDS: GEMFIBROZIL 600 MG TABLET NG SCH (16:37)
[2017-06-02] MEDS: TRACE ELEMENTS (5) 1 ML, MULTIVITAMIN INJ 10 ML, INSULIN REGULAR 60 UNIT in AMINO ACIDS... IV SCH (18:34)
[2017-06-02] MEDS: TRACE ELEMENTS (5) 1 ML, MULTIVITAMIN INJ 10 ML, INSULIN REGULAR 30 UNIT in AMINO ACIDS... IV SCH (18:35)
[2017-06-03] MEDS: VORICONAZOLE IV SCH (02:06)
[2017-06-03] MEDS: SODIUM CHLORIDE 0.9% IV SCH (02:06)
[2017-06-03 04:05] LABS: ABG Base Excess -0.6 MMOL/L (-2.5-2.5); ABG HCO3 22.6 MMOL/L (20-26); ABG PCO2 32.8 MM HG (35-48); ABG PH 7.457 (7.35-7.45); ABG PO2 107.7 MM HG (80-95); ABG TCO2 23.7 MMOL/L (23-27)
[2017-06-03] MEDS: DEXTROSE 5% NACL 0.9% 1,000 ML IV SCH (04:39)
[2017-06-03 04:41] LABS: Basophils % 1.2 % (0.0-0.8); Hematocrit 33.3 VOL% (35.7-47.0); Hemoglobin 11.5 GM/DL (12.0-16.0); Immature Granulocytes % 8.3 %; Immature Granulocytes Absolute 0.21 #; Lymphocytes # 0.3 10*3/uL (1.4-4.0); Lymphocytes % 12.3 % (21.3-54.2); Mean Corpuscular HGB Conc 34.5 GM/DL (32-36); Mean Corpuscular Hemoglobin 30 PG (27-34); Mean Corpuscular Volume 86.7 FL (87-102); Monocytes # 0.1 10*3/uL (0.11-0.8); Monocytes % 4.4 % (1.7-12.7); Neutrophils # 1.9 10*3/uL (1.4-7.4); Neutrophils % 73.8 % (38.7-73.9); Red Blood Count 3.84 MC/CUMM (3.8-5.5); Red Cell Distribution Width 14.6 % (9.3-17.3); White Blood Count 2.5 T/CUMM (4-12)
[2017-06-03 04:45] LABS: Platelet Count 11 T/CUMM (130-400)
[2017-06-03] MEDS ORDERED: SODIUM CHLORIDE 0.9% 1,000 ML IV PRN (04:51)
[2017-06-03 05:04] LABS: Band Neutrophils 1 % (0-10); Lymphocytes 13 % (20-55); Metamyelocytes 1 %; Myelocytes 1 %; Segmented Neutrophils 76 % (50-85)
[2017-06-03 05:05] LABS: Hypochromasia Slight
[2017-06-03 05:06] LABS: Burr Cells Few
[2017-06-03 05:07] LABS: Ovalocytes Slight; Platelet Estimate Decreased
[2017-06-03 05:08] LABS: Total Cells Counted 100
[2017-06-03 05:19] LABS: Albumin 1.1 G/DL (3.4-5.0); Bilirubin,Total 0.7 MG/DL (0.2-1.0); Calcium 8.1 MG/DL (8.5-10.1); Osmolality,Calculated 281.8 MOS/KG (273-304); Potassium 4.2 MMOL/L (3.5-5.1); Total Protein 5.8 G/DL (6.4-8.3)
[2017-06-03] MEDS: INSULIN REGULAR 100 UNIT/ML SUBCUT SCH ×4 (05:23→23:58)
[2017-06-03] MEDS: methylPREDNISolone SOD SUC 40 MG/1 ML VIAL IV SCH ×3 (06:08→18:24)
[2017-06-03] MEDS: AMPICILLIN/SULBACTAM 1,500 MG in SODIUM CHLORIDE 0.9% 100 ML IV SCH ×2 (09:11→21:04)
[2017-06-03] MEDS: ZINC OXIDE PASTE 113 GM TUBE TOP SCH ×2 (09:25→21:04)
[2017-06-03] MEDS: MIDAZOLAM 100 MG in SODIUM CHLORIDE 0.9% 80 ML IV SCH (09:26)
[2017-06-03] MEDS: VORICONAZOLE INJ 200 MG in SODIUM CHLORIDE 0.9% 100 ML IV SCH (13:50)
[2017-06-03] MEDS: FAT EMULSION 20% 250 ML IV SCH (14:06)
[2017-06-03] MEDS ORDERED: AMPICILLIN INJ 2,000 MG in SODIUM CHLORIDE 0.9% 100 ML IV PRN (15:15)
[2017-06-03] MEDS: TRACE ELEMENTS (5) 1 ML, MULTIVITAMIN INJ 10 ML, INSULIN REGULAR 60 UNIT in AMINO ACIDS... IV SCH (18:22)
[2017-06-03] MEDS: NOREPINEPHRINE 16 MG in SODIUM CHLORIDE 0.9% 234 ML IV SCH (18:33)
[2017-06-03] MEDS: PHENYLEPHRINE INJ 160 MG in SODIUM CHLORIDE 0.9% 234 ML IV SCH (19:06)
[2017-06-04] MEDS: methylPREDNISolone SOD SUC 40 MG/1 ML VIAL IV SCH ×5 (00:01→23:16)
[2017-06-04] MEDS: VORICONAZOLE INJ 200 MG in SODIUM CHLORIDE 0.9% 100 ML IV SCH ×2 (00:01→13:02)
[2017-06-04 03:33] LABS: ABG Base Excess -2.5 MMOL/L (-2.5-2.5); ABG HCO3 22.3 MMOL/L (20-26); ABG Oxygen Saturation 96.2 % (95-100); ABG PCO2 29.2 MM HG (35-48); ABG PH 7.453 (7.35-7.45); ABG PO2 78.4 MM HG (80-95); ABG TCO2 18.2 MMOL/L (23-27); Allen Test Positive; Pt O2 Delivery Device Ventilator
[2017-06-04 04:25] LABS: Basophils % 1.6 % (0.0-0.8); Eosinophils % 0.4 % (0.00-10.9); Hematocrit 30.7 VOL% (35.7-47.0); Hemoglobin 11.1 GM/DL (12.0-16.0); Immature Granulocytes % 0.4 %; Immature Granulocytes Absolute 0.01 #; Lymphocytes # 0.3 10*3/uL (1.4-4.0); Mean Corpuscular HGB Conc 36.2 GM/DL (32-36); Mean Corpuscular Hemoglobin 30 PG (27-34); Mean Corpuscular Volume 83.7 FL (87-102); Monocytes # 0.1 10*3/uL (0.11-0.8); Monocytes % 3.5 % (1.7-12.7); NRBC # 0.02 10*3/uL; Neutrophils # 2.1 10*3/uL (1.4-7.4); Neutrophils % 83.1 % (38.7-73.9); Red Blood Count 3.67 MC/CUMM (3.8-5.5); Red Cell Distribution Width 14.4 % (9.3-17.3); White Blood Count 2.6 T/CUMM (4-12)
[2017-06-04 04:30] LABS: Platelet Count 24 T/CUMM (130-400)
[2017-06-04 04:42] LABS: Albumin 1.1 G/DL (3.4-5.0); Bilirubin,Total 0.6 MG/DL (0.2-1.0); Calcium 8.4 MG/DL (8.5-10.1); Osmolality,Calculated 281.2 MOS/KG (273-304); Potassium 4.8 MMOL/L (3.5-5.1); Total Protein 5.9 G/DL (6.4-8.3)
[2017-06-04 04:53] LABS: Band Neutrophils 8 % (0-10); Burr Cells Slight; Giant Platelets Few; Hypochromasia 1+; Lymphocytes 13 % (20-55); Ovalocytes Slight; Platelet Estimate Decreased; Segmented Neutrophils 75 % (50-85); Total Cells Counted 100
[2017-06-04 04:54] LABS: Microcytosis Slight
[2017-06-04] MEDS: INSULIN REGULAR 100 UNIT/ML SUBCUT SCH ×3 (06:17→17:59)
[2017-06-04] MEDS: AMPICILLIN/SULBACTAM 1,500 MG in SODIUM CHLORIDE 0.9% 100 ML IV SCH ×2 (08:35→21:11)
[2017-06-04] MEDS: ZINC OXIDE PASTE 113 GM TUBE TOP SCH ×2 (08:36→21:15)
[2017-06-04] MEDS: MIDAZOLAM 100 MG in SODIUM CHLORIDE 0.9% 80 ML IV SCH (09:23)
[2017-06-04] MEDS: NOREPINEPHRINE 16 MG in SODIUM CHLORIDE 0.9% 234 ML IV SCH ×2 (11:56→18:19)
[2017-06-04] MEDS: FAT EMULSION 20% 250 ML IV SCH (13:59)
[2017-06-04] MEDS: MORPHINE 2 MG/1 ML SYRINGE IV PRN ×2 (16:06→23:06)
[2017-06-04] MEDS: TRACE ELEMENTS (5) 1 ML, MULTIVITAMIN INJ 10 ML, INSULIN REGULAR 60 UNIT in AMINO ACIDS... IV SCH (17:06)
[2017-06-04] MEDS: PHENYLEPHRINE INJ 160 MG in SODIUM CHLORIDE 0.9% 234 ML IV SCH (18:25)
[2017-06-04] MEDS ORDERED: AMPICILLIN INJ 2,000 MG in SODIUM CHLORIDE 0.9% 100 ML IV ONE (21:00)
[2017-06-05] MEDS: INSULIN REGULAR 100 UNIT/ML SUBCUT SCH ×3 (00:15→11:35)
[2017-06-05] MEDS: VORICONAZOLE INJ 200 MG in SODIUM CHLORIDE 0.9% 100 ML IV SCH ×2 (01:32→14:24)
[2017-06-05 04:07] LABS: ABG Base Excess -1.9 MMOL/L (-2.5-2.5); ABG HCO3 22.6 MMOL/L (20-26); ABG Oxygen Saturation 89.8 % (95-100); ABG PCO2 45.9 MM HG (35-48); ABG PH 7.333 (7.35-7.45); ABG PO2 61.3 MM HG (80-95); ABG TCO2 21.3 MMOL/L (23-27); Pt O2 Delivery Device Ventilator
[2017-06-05 05:22] LABS: Basophils # 0.1 10*3/uL (0.0-0.2); Basophils % 1.8 % (0.0-0.8); Hematocrit 30.3 VOL% (35.7-47.0); Hemoglobin 10.8 GM/DL (12.0-16.0); Immature Granulocytes % 0.6 %; Immature Granulocytes Absolute 0.02 #; Lymphocytes # 0.2 10*3/uL (1.4-4.0); Lymphocytes % 6.1 % (21.3-54.2); Mean Corpuscular HGB Conc 35.6 GM/DL (32-36); Mean Corpuscular Hemoglobin 30 PG (27-34); Mean Corpuscular Volume 83.5 FL (87-102); Monocytes # 0.2 10*3/uL (0.11-0.8); Monocytes % 5.5 % (1.7-12.7); NRBC # 0.06 10*3/uL; Neutrophils # 2.8 10*3/uL (1.4-7.4); Red Blood Count 3.63 MC/CUMM (3.8-5.5); Red Cell Distribution Width 14.9 % (9.3-17.3); White Blood Count 3.3 T/CUMM (4-12)
[2017-06-05 05:29] LABS: Platelet Count 5 T/CUMM (130-400)
[2017-06-05 06:00] LABS: Bilirubin,Total 0.5 MG/DL (0.2-1.0); Calcium 7.8 MG/DL (8.5-10.1); Potassium 4.9 MMOL/L (3.5-5.1)
[2017-06-05] MEDS ORDERED: SODIUM CHLORIDE 0.9% 1,000 ML IV PRN (06:03)
[2017-06-05 06:10] LABS: Band Neutrophils 18 % (0-10); Lymphocytes 7 % (20-55); Myelocytes 1 %; Nucleated Red Blood Cells 2 (0-5); Segmented Neutrophils 70 % (50-85); Total Cells Counted 100
[2017-06-05 06:11] LABS: Anisocytosis 1+; Hypochromasia 1+
[2017-06-05 06:12] LABS: Acanthocytes Few; Target Cells Few
[2017-06-05 06:13] LABS: Platelet Estimate Decreased
[2017-06-05] MEDS: methylPREDNISolone SOD SUC 40 MG/1 ML VIAL IV SCH ×3 (06:15→16:53)
[2017-06-05] MEDS: AMPICILLIN/SULBACTAM 1,500 MG in SODIUM CHLORIDE 0.9% 100 ML IV SCH (08:27)
[2017-06-05] MEDS: ZINC OXIDE PASTE 113 GM TUBE TOP SCH (08:28)
[2017-06-05] MEDS: MIDAZOLAM 100 MG in SODIUM CHLORIDE 0.9% 80 ML IV SCH (09:02)
[2017-06-05] MEDS: MORPHINE 2 MG/1 ML SYRINGE IV PRN ×5 (09:11→18:27)
[2017-06-05] MEDS: NOREPINEPHRINE 16 MG in SODIUM CHLORIDE 0.9% 234 ML IV SCH (09:56)
[2017-06-05] MEDS ORDERED: PROPOFOL 1,000 MG/100 ML BOTTLE IV ONE (12:55)
[2017-06-05] MEDS: LORazepam 2 MG/1 ML VIAL IV PRN (13:44)
[2017-06-05] MEDS: FAT EMULSION 20% 250 ML IV SCH (14:55)
[2017-06-05] MEDS ORDERED: ALBUTEROL/IPRATROPIUM 3 ML NEB RESP TX SCH (15:00)
[2017-06-05] MEDS ORDERED: TRACE ELEMENTS (5) 1 ML, MULTIVITAMIN INJ 10 ML, INSULIN REGULAR 40 UNIT in AMINO ACIDS... IV SCH (15:00)
[2017-06-06] MEDS: MORPHINE 2 MG/1 ML SYRINGE IV PRN (07:30)
[2017-06-06] MEDS: LORazepam 2 MG/1 ML VIAL IV PRN (07:31)
[2017-06-06] MEDS ORDERED: LORazepam 2 MG/1 ML VIAL IV PRN (07:40)
[2017-06-06 08:49] VITALS: BP 65/43
== END 2017-06-06 08:48 | disposition expired | DRG 871 ==
LOC: EDBD → EDUNIT# → N.ED 10:49 → SUATTDRO 11:51 → N.EDINP 11:51 → N.ICU 13:57
PROVIDERS: ADMIT Hospitalist